=== PATIENT | male | born 1940 | race Caucasian/White ===

== ENCOUNTER → 2018-03-11 16:51 | Outpatient (CLI) | payer MEDICARE, OTHER, SELFPAY | PROVIDERS: PCP Internal Medicine; Visit Provider Urology | DX: C61 Malignant neoplasm of prostate (principal) | CPT/HCPCS: 36415; 84153 ==

== ENCOUNTER → 2018-07-02 14:34 | Outpatient (CLI) | payer MEDICARE, OTHER, SELFPAY ==
[2018-07-02 14:58] LABS: Add Manual Diff / Slide Review NO; Basophils Absolute Auto 0 /uL (0-100); Basophils Percent Auto 0.4 % (0-2); Eosinophils Absolute Auto 100 /uL (0-450); Eosinophils Percent Auto 0.6 % (2-4); Hematocrit 49.5 % (41-53); Hemoglobin 16.8 g/dL (13.5-17.5); Lymphocytes Absolute Auto 600 /uL (1100-4500); Lymphocytes Percent Auto 6.7 % (25-40); Mean Corpuscular Hemoglobin 30.6 PG (26-34); Mean Corpuscular Volume 89.9 fL (80-100); Monocytes Absolute Auto 600 /uL (0-900); Monocytes Percent Auto 6.6 % (3-14); Neutrophils Absolute Auto 7900 /uL (1500-7000); Neutrophils Percent Auto 85.7 % (50-75); Platelet Count 240 X10^3/uL (150-400); Red Cell Distribution Width 13.3 % (11.6-14.8); White Blood Cell Count 9.3 X10^3/uL (4.5-11.0)
[2018-07-02 15:07] LABS: Alanine Aminotransferase 36 IU/L (21-72); Albumin 4.6 g/dL (3.5-5.0); Albumin Globulin Ratio 1.8 (1.0-2.8); Alkaline Phosphatase 76 U/L (38-126); Aspartate Aminotransferase 22 IU/L (17-59); BUN Creatinine Ratio 22.7 (6-22); Bilirubin Total 0.7 mg/dL (0.2-1.3); Blood Urea Nitrogen 25 mg/dL (9-20); Calcium 9.6 mg/dL (8.4-10.2); Carbon Dioxide 25 mmol/L (22-32); Chloride 107 mmol/L (98-107); Estimated Glomerular Filt Rate > 60.0 mL/min (>60); Globulin 2.5 g/dL (1.7-4.1); Glucose 100 mg/dL (80-110); HEMOLYSIS < 15 (0-50); Potassium 4.6 mmol/L (3.4-5.1); Sodium 141 mmol/L (137-145); Total Protein 7.1 g/dL (6.3-8.2)
== END ==
PROVIDERS: PCP Internal Medicine; Visit Provider Internal Medicine
DX: R00.1 Bradycardia, unspecified (principal); I44.0 Atrioventricular block, first degree; K40.90 Unilateral inguinal hernia, without obstruction or gangrene, not specified as recurrent; R97.20 Elevated prostate specific antigen [PSA]
CPT/HCPCS: 36415; 80053; 84153; 85025

== ENCOUNTER 2018-07-22 07:22 | Day surgery (SDC) | payer MEDICARE, OTHER, SELFPAY ==
[2018-07-17 10:26] VITALS: BMI 27.9
[2018-07-22] VITALS (8 sets, daily range): BP systolic 132–189; BP diastolic 70–87; PULSE 46–81; RESP 13–20; TEMP 36–37; O2SAT 92–99; BMI 27.8
--- NOTE | 2018-07-22 08:27 | SUR.OPER ---
Supine on padded OR bed, head on pillow, arms secured on padded arm boards at <90 degrees abduction, legs uncrossed, safety belt at thigh, tape over blanket over lower legs.
[2018-07-22] MEDS: LACTATED RINGERS 1,000 ML 42 ML IV (08:56)
[2018-07-22] MEDS: CEFAZOLIN 2 GM/100 ML FROZ.PIGGY IV (09:00)
--- NOTE | 2018-07-22 09:12 | PM.PREOP ---
Pre-operative Note Interval Note History & Physical reviewed/Exam performed by Physician: Yes Changes to H&P: No
[2018-07-22] MEDS: LIDOCAINE 1% W/EPI INJ 20 ML INJ (09:26)
[2018-07-22] MEDS: BUPIVACAINE 0.5% (PF) VIAL 30 ML INJ (09:27)
[2018-07-22] MEDS: CEFAZOLIN 1 GM VIAL IRR (09:28)
--- NOTE | 2018-07-22 10:22 | P.OP_ITS ---
Operative Date/Time/Diagnoses Date of procedure: 07/22/18 Time of procedure: 10:21 Pre-op diagnosis: Right inguinal hernia Post-op diagnosis: same Procedure & Clinicians Procedure: Right inguinal hernia repair with mesh Same procedure as scheduled: Yes Indications: Enlarging right inguinal hernia Surgeon: Melinda Ponce Click Yes if Unassisted: Yes Anesthesia Type: General (Dr. Culp ) Operative Notes Findings: Large indirect right inguinal hernia Closure Type: primary Specimen(s): none sent Prosthetic devices, grafts, tissues, transplants, or devices: Large Pro Loop mesh implant with plug and patch Estimated Blood Loss (mL): 5 Procedure in detail: After obtaining informed consent the patient was brought to the operating room and placed in the supine position on the operating table. Following successful induction of general endotracheal anesthesia, appropriate padding of all bony prominences, and a placement of appropriate monitors, the left groin is prepped and draped in a standard surgical fashion. A timeout was held per protocol. We began the procedure by infiltrating a mixture of local anesthetics medial to the anterior superior iliac spine on the right. Following this, an incision was fashioned in the right groin superior and lateral to the left pubic tubercle. This area was infiltrated with local anesthetic to create a field block. A skin incision was created here and carried down through the skin and subcutaneous tissue to reveal Prabhu's fascia below. Prabhu's fascia was divided sharply revealing the external oblique aponeurosis below. More local anesthetic was infiltrated in the aponeurosis and it was opened in the direction of its fibers. The spermatic cord and its contents were surrounded and retracted gently using a [place] drain. The hernia sac was identified in the superior medial position and carefully dissected free from the cord structures. This was carefully placed back into the abdominal cavity without injury. A large portion of PROloop mesh was chosen for the repair. The plug was soaked in Ancef solution and deployed into the defect in the internal ring. This was sewn into place with interrupted Vicryl sutures in 2 positions. The overlying mesh layer was sewn to the pubic tubercle with an air knot of Vicryl suture. The lateral leaflets were then carefully placed around the spermatic cord and sewn together with another suture. Tags of the overlying mesh were then tucked under the external oblique aponeurosis. The wound was checked for hemostasis and irrigated with Ancef-containing solution. The edges of the external oblique aponeurosis were approximated and closed with a running Vicryl suture. The wound was irrigated once again and Prabhu's fascia was closed with a running suture. Monocryl sutures were placed in the skin. All sponge, needle, and instrument counts were correct at the conclusion of the case. The patient was allowed to awaken from anesthesia without difficulty and taken to the post anesthesia care unit in good condition. Complications: none Condition: stable Disposition: PACU Plan for aftercare: 1. Discharge to home 2. Follow up with me in my office in 2 weeks
--- NOTE | 2018-07-22 11:02 | SUR.PHASEII ---
Pt denied pain. Tolerating ice chips, declined additional po intake. Denied pain. Call light within reach.
== END 2018-07-22 11:37 | disposition home or self-care (01) ==
LOC: OR 07:24
PROVIDERS: PCP Internal Medicine; Visit Provider Surgery
PROC: (CPT 49505; principal; 2018-07-22 08:45)
DX: K40.90 Unilateral inguinal hernia, without obstruction or gangrene, not specified as recurrent (principal)
CPT/HCPCS: 49505; C1781; J0690; J1100; J1885; J2704

== ENCOUNTER → 2018-09-11 08:33 | Outpatient (CLI) | payer MEDICARE, OTHER, SELFPAY ==
[2018-09-11 11:28] LABS: Prostate Specific Antigen 3.77 ng/mL (0.10-4.00)
== END ==
PROVIDERS: PCP Internal Medicine; Visit Provider Urology
DX: C61 Malignant neoplasm of prostate (principal)
CPT/HCPCS: 36415; 84153

== ENCOUNTER → 2019-04-28 10:32 | Outpatient (CLI) | payer MEDICARE, OTHER, SELFPAY | PROVIDERS: PCP Internal Medicine; Visit Provider Urology | DX: C61 Malignant neoplasm of prostate (principal) | CPT/HCPCS: 36415; 84153 ==

== ENCOUNTER → 2019-07-05 09:15 | Outpatient (CLI) | payer MEDICARE, OTHER, SELFPAY ==
[2019-07-05 11:07] LABS: Prostate Specific Antigen 19.8 ng/mL (0.10-4.00)
== END ==
PROVIDERS: PCP Internal Medicine; Visit Provider Urology
DX: C61 Malignant neoplasm of prostate (principal)
CPT/HCPCS: 36415; 84153

== ENCOUNTER → 2019-08-26 08:54 | Outpatient (CLI) | payer MEDICARE, OTHER, SELFPAY ==
[2019-08-26 10:38] LABS: BUN Creatinine Ratio 17.1 (6-22); Blood Urea Nitrogen 18 mg/dL (9-20); Estimated Glomerular Filt Rate > 60.0 mL/min (>60)
== END ==
PROVIDERS: PCP Internal Medicine; Referring Provider Urology; Visit Provider Urology
DX: C61 Malignant neoplasm of prostate (principal)
CPT/HCPCS: 36415; 82565; 84520

== ENCOUNTER → 2019-09-02 10:19 | Outpatient (CLI) | payer MEDICARE, OTHER, SELFPAY ==
--- NOTE | 2019-09-02 | DI.NM.S_ITS ---
PROCEDURE: NM BONE SCAN WHOLE BODY RADIOPHARMACEUTICAL: 19.5 mCi Tc-99m MDP IV. INDICATIONS: Malignant neoplasm of prostate TECHNIQUE: Delayed whole-body scintigrams were obtained approximately 3-4 hours after intravenous injection of radiotracer. Anterior and posterior views were acquired from vertex to feet. Additional left and right oblique views of the pelvis were obtained. COMPARISON: [facility], CT, CT ABDOMEN PELVIS W CON, 09/02/2019, 11:10. FINDINGS: There is an isolated linear band of elevated isotope deposition within the left anterolateral fourth rib. The appearance is nonspecific but in this position with this appearance it does represent a potential area of osseous metastatic disease. IMPRESSION: Rib lesion on the left, left anterolateral fourth rib. Please correlate for whether prior trauma has occurred in this area. The prior CT scanning of the abdomen/pelvis does not include this area for CT correlation. 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 Dictated by: Edd Leon M.D. on 09/02/2019 at 16:16 Approved by: Edd Leon M.D. on 09/02/2019 at 16:18
--- NOTE | 2019-09-02 | DI.CT.S_ITS ---
PROCEDURE: CT ABDOMEN PELVIS W CON INDICATIONS: Malignant neoplasm of prostate TECHNIQUE: After the administration of oral and intravenous contrast, 5 mm thick sections acquired from the diaphragms to the symphysis. 5 mm thick coronal and sagittal reformats were performed. For radiation dose reduction, the following was used: automated exposure control, adjustment of mA and/or kV according to patient size. COMPARISON: None. FINDINGS: Image quality: Excellent. ABDOMEN: Lung bases: Lung bases are clear. Heart size is normal. Solid organs: Liver is normal in size and enhancement. Gallbladder is within normal limits. Biliary system is non-dilated. Pancreas enhances normally. Spleen is normal in size and enhancement. No adrenal nodules. Kidneys are normal in size and enhancement, without hydronephrosis. Peritoneum and bowel: Large hiatal hernia. Stomach, small bowel, and colon loops are normal in caliber and wall thickness. Diverticulosis of the descending and sigmoid colon. No free fluid or air. Nodes and vessels: No retroperitoneal or mesenteric adenopathy. Aorta and inferior vena cava are normal in caliber. Miscellaneous: There is a fat-containing 30 mm diameter paraumbilical hernia. PELVIS: Genitourinary: There is asymmetric indentation of the left posterior urinary bladder secondary to enlarged prostate, versus thickening of the left posterior inferior urinary bladder, which could be postsurgical, or neoplastic. Miscellaneous: No inguinal hernias or adenopathy. Bones: There is a moderate effusion of the pubic symphysis, measuring 23 mm anteroposterior by 25 mm craniocaudal by 27 mm transverse. There is no evidence of associated pubic symphysis erosion. No definite medication with urinary bladder is present. No suspicious bony lesions. No vertebral body compression fractures. IMPRESSION: 1. Pubic symphysis effusion, which could indicate inflammation, or infection. 2. Abnormal appearing left posterior inferior bladder. Differential considerations include postsurgical sequelae, neoplasm, versus asymmetric indentation by enlarged prostate. Cystoscopy recommended for further assessment. 3. Large hiatal hernia. Dictated by: Karan Sage M.D. on 09/02/2019 at 12:47 Approved by: Karan Sage M.D. on 09/02/2019 at 12:54
--- NOTE | 2019-09-07 09:22 | ONC.MSW ---
Description: Initial Referral Navigation T/C Reason for Referral: Prostate Cancer Activity:Called pt to confirm that we've received his referral, introduced myself as the navigator, and briefly explained the role of navigation and the ongoing availability of assistance, support, and resources. Pt was just recently dx w/prostate cancer, has started his initial treatment with Lupron. He states that he's getting a CT this morning here at , expresses no immediate needs. Forwarded to scheduling for next urgent initial appt. next week.
== END ==
PROVIDERS: PCP Internal Medicine; Referring Provider Urology; Visit Provider Urology
DX: C61 Malignant neoplasm of prostate (principal); K44.9 Diaphragmatic hernia without obstruction or gangrene; K57.30 Diverticulosis of large intestine without perforation or abscess without bleeding; K42.9 Umbilical hernia without obstruction or gangrene; M89.9 Disorder of bone, unspecified
CPT/HCPCS: 74177; 78306; A9503

== ENCOUNTER → 2019-09-07 10:23 | Outpatient (CLI) | payer MEDICARE, OTHER, SELFPAY ==
--- NOTE | 2019-09-07 | DI.CT.S_ITS ---
PROCEDURE: CT CHEST WO CON INDICATIONS: PROSTATE CANCER TECHNIQUE: Noncontrast 5 mm thick sections acquired from the pulmonary apices to the posterior costophrenic angles. 1 mm lung window, 5 mm thick coronal and sagittal and 7 mm axial MIP reformats were then acquired. For radiation dose reduction, the following was used: automated exposure control, adjustment of mA and/or kV according to patient size. COMPARISON: [place], [place], [place] BONE SCAN WHOLE BODY, 09/02/2019, 14:16. FINDINGS: Image quality: Excellent. Lungs and pleura: No acute air space opacities. No pleural effusions or pneumothorax. Central and peripheral airways are patent and normal in caliber. Mediastinum: Heart size is normal. No pericardial effusion. No mediastinal adenopathy by size criteria. Thoracic aorta and central pulmonary arteries are normal in size. Scattered atheromatous calcifications are present within the aortic arch. There is scattered atheromatous coronary artery calcifications. Esophagus is normal in caliber. There is a moderate hiatal hernia. Bones and chest wall: Questionable, subtle sclerosis is noted within the anterolateral aspect of the fourth left rib in the area of increased radiotracer uptake on the comparison bone scan dated 09/02/19 (series 3/image 110). No other suspicious bony lesions. No vertebral body compression fractures. No axillary or supraclavicular adenopathy by size criteria. Thyroid gland is unremarkable. Abdomen: Visualized upper abdominal solid organs and bowel loops appear normal in the absence of contrast. IMPRESSION: 1. Questionable subtle sclerosis within the anterolateral aspect of the left fourth rib which may correspond with the focal area of increased radiotracer uptake. Differential considerations include metastasis; however, this is a nonspecific finding which may be associated with prior trauma or bony remodeling. 2. No other findings to suggest metastasis. 3. Hiatal hernia. 4. Coronary artery and aortic atherosclerosis. Dictated by: Rakel Pedersen M.D. on 09/07/2019 at 13:29 Approved by: Rakel Pedersen M.D. on 09/07/2019 at 13:38
== END ==
PROVIDERS: PCP Internal Medicine; Referring Provider Urology; Visit Provider Urology
DX: C61 Malignant neoplasm of prostate (principal); I25.10 Atherosclerotic heart disease of native coronary artery without angina pectoris; I70.0 Atherosclerosis of aorta; K44.9 Diaphragmatic hernia without obstruction or gangrene
CPT/HCPCS: 71250

== ENCOUNTER → 2019-09-16 13:39 | Oncology outpatient (ONC) | payer MEDICARE, OTHER, SELFPAY ==
--- NOTE | 2019-09-16 14:07 | ONC.CONS ---
History of Present Illness - Data of Consult Patient: new to practice Consult date: 09/16/19 Requesting Physician: Zafar Ventura MD Primary Care Provider: Zafar Ventura MD - Consult Narrative Reason for consult: Prostate cancer Narrative: Maynor Man is a 79 year old male. Patient presented with urinary retention, and underwent TURP on 04/15/2003. The pathology showed Lamar 3+3=6/10, pT1a, 1/70 cores positive, no LVI and no PNI. On 08/11/2003, he underwent TRUS prostate Bx that showed no cancer, no high-grade PIN. Patient said since then he has never had any urinary retention problem again. The PSA level initially decreased and then has been slowly going up. His PSA level on 01/18/2009 was 0.64. On 09/11/2018, PSA was 3.77. But on 04/28/2019, PSA was 11.0. On 07/05/2019, PSA increased further to 19.8. Due to accelerated rising PSA, Dr. Cruz performed TRUS prostate biopsy on 08/16/2019. The final pathology showed Sita score 5+4=9/10, prostate adenocarcinoma in left base, no perineural invasion; Lamar score 5+4=10/10 prostate adenocarcinoma in left mid and left apex, no perineural invasion. On 09/01/2019, he was started on Lupron 7.5 mg im, and plan for 30 days of casodex. His next lupron injection was scheduled for 10/12/2019. According to patient, the plan is to proceed to radiation therapy. On 09/02/2019, patient underwent CT abdomen and pelvis that showed pubic symphysis effusion, abnormal appearing left posterior inferior bladder and large hiatal hernia. Same day bone scan showed rib lesion on the left anterior lateral fourth rib. Follow-up CT chest without contrast on 09/07/2019 showed questionable subtle sclerosis within the anterior lateral aspect of the left fourth rib. Clinically, Melchor is having on and off pubic symphysis discomfort. He said he can feel it, but not sharp. He reports no swelling, and no redness. He reports no rib pain, no back pain. He said he is very active. Yesterday he walked about a total of 4 miles without problems. He is also doing weights exercise. He has good appetite, and his weight is stable 187-190 lb. He denies any urination problem, and no blood in the urine. CC: Joshua Hunter MD Home Medications and Allergies Home Medications Medication Instructions Recorded Confirmed Type bicalutamide [Casodex] 50 mg PO DAILY 09/16/19 09/16/19 History calcium carbonate [Calcium 500] 500 mg PO DAILY 09/16/19 09/16/19 History cholecalciferol (vitamin D3) 2,000 unit DAILY 09/16/19 09/16/19 History [Vitamin D3] Allergies Allergy/AdvReac Type Severity Reaction Status Date / Time venom-honey bee Allergy Severe swelling Verified 08/04/18 09:23 [bee venom (honey bee)] of injured area Medical History - Medical, Surgical, Family History Medical History: Medical History (Last Reviewed 08/04/18 @ 09:40 by Melinda Ponce MD) Atrioventricular block, first degree Bradycardia Elevated liver function tests Enlarged prostate Fatty liver Former consumption of alcohol Former smoker GERD (gastroesophageal reflux disease) Pneumonia Prostate cancer Sinusitis Surgical History: Surgical History (Last Reviewed 08/04/18 @ 09:40 by Melinda Ponce MD) History of colonoscopy Onset Date: ~2014 History of nasal surgery History of urinary tract surgery S/P TURP (transurethral resection of prostate) Family History: Family History (Last Updated 09/16/19 @ 14:32 by Joshua Hunter MD) Mother Colon cancer Father Lung cancer - Social History Smoking Status: Former smoker Substance Use Type: does not use Alcohol Intake: current (once a while, wine or beer.) Review of Systems All systems PM: reviewed and no additional remarkable complaints except as stated (Those mentioned in HPI and SR above.) Exam Vital signs: 09/16/19 14:31 Last Vital Signs Temp 98.3 F 09/16/19 14:12 Pulse 55 L 09/16/19 14:12 Resp 18 09/16/19 14:12 BP 148/80 H 09/16/19 14:12 Pulse Ox 97 09/16/19 14:12 Narrative: ECOG 1 Vitals above reviewed Constitutional: WDWN, well nourished, and well groomed. NAD. Pleasant and cooperative. HEENT: NCAT, EOMI, PERRLA, anicteric sclera. Oral mucosa clean, no erythema, no ulcers noted on the oral mucosa, no enlargement of tonsils, and no pharynx secretions noted. Neck: Supple and symmetrical. No palpable thyromegaly or lymphadenopathy. No palpable masses. Respiratory: No use of accessory muscles, CTAB, no wheezes. Cardiovascular: RRR, S1 and S2 normal, no M/G/R. No edema of lower extremities. Abdomen: Soft, NTND, no palpable hepatosplenomegaly, no hernia. Lymphatic: no palpable palpable lymph nodes in the neck, axillae, or groins. Musculoskeletal: normal gait and station Skin: no rashes, lesions, or ulcers, no induration, or sub cutaneous nodules. Neurological: AOx3, CN II-XII grossly intact. No focal motor or sensory deficit. Psychiatric: Normal judgment and insight, AOx3, normal memory (recent and remote), normal mood and affect. Results - Labs Reviewed. See HPI. - Imaging CT scan - abdomen: report reviewed CT scan - chest: report reviewed CT scan - pelvis: report reviewed (Bone scan was reviewed) Additional studies: Procedures Endoscopic polypectomy of large intestine (09/16/14) Assessment and Plan (1) Prostate cancer Overview: 79-year-old gentleman with GS 3+3 prostate cancer diagnosed after TURP in March 2003 for urinary retention. Follow-up TR you as in July 2003 reviewed no cancer. Patient has been on observation since. His PSA level initially decreased slightly and nadired to 1.29 in November 2016. But it has increased slowly since. Recently in April 2019, PSA showed an accelerated climb with PSA as high as 19.8 in June 2019. Repeat TRUS on 08/16/2019 showed Lamar score 5+5 prostate adenocarcinoma. Patient was started on androgen deprivation therapy on 09/01/2019 with Lupron. Casodex x1 month was used to prevent flare. Assessment: I explained to the patient that he has a most likely locally advanced prostate adenocarcinoma with high Sita score. The left anterior rib lesion is suspicious for metastasis but not confirmed yet. He also denies any symptoms related to the anterior rib. I talked with him that I would recommend continue androgen deprivation therapy and monitor PSA level closely. Plan: Follow with Dr. Cruz for Lupron 22.5 mg q3m as planned. RTC in 3 months, CBC, CMP, PSA, T
[2019-09-16 14:12] VITALS: BP 148/80; PULSE 55; RESP 18; TEMP 36.8; O2SAT 97
--- NOTE | 2019-12-15 11:57 | ONC.SCHED ---
patient being seen at [facility] now, if he wants to get back on Dr. Hunter's schedule, he will call (cancelled 12/16/19 appt)
== END ==
PROVIDERS: PCP Internal Medicine; Referring Provider Urology; Visit Provider Internal Medicine Hematology & Oncology
DX: C61 Malignant neoplasm of prostate (principal); M89.9 Disorder of bone, unspecified; K76.0 Fatty (change of) liver, not elsewhere classified; K21.9 Gastro-esophageal reflux disease without esophagitis; Z87.891 Personal history of nicotine dependence
CPT/HCPCS: 99204; 99214

== ENCOUNTER → 2021-07-26 08:09 | Outpatient (CLI) | payer MEDICARE, OTHER, SELFPAY ==
[2021-07-26 11:27] LABS: Prostate Specific Antigen 0.586 ng/mL (0.10-4.00)
== END ==
PROVIDERS: PCP Internal Medicine; Referring Provider Physician Assistant; Visit Provider Physician Assistant
DX: C61 Malignant neoplasm of prostate (principal)
CPT/HCPCS: 36415; 84153

== ENCOUNTER → 2022-02-05 09:12 | Outpatient (CLI) | payer MEDICARE, OTHER, SELFPAY ==
[2022-02-05 15:06] LABS: Alanine Aminotransferase 20 IU/L (<50); Albumin 4.1 g/dL (3.5-5.0); Alkaline Phosphatase 67 U/L (38-126); Aspartate Aminotransferase 24 IU/L (17-59); BUN Creatinine Ratio 17.1 (6-22); Bilirubin Total 0.6 mg/dL (0.2-1.3); Blood Urea Nitrogen 18 mg/dL (9-20); Calcium 9.3 mg/dL (8.4-10.2); Carbon Dioxide 27 mmol/L (22-32); Chloride 103 mmol/L (98-107); Estimated Glomerular Filt Rate > 60 mL/min (>60); Globulin 2.1 g/dL (1.7-4.1); Glucose 95 mg/dL (80-110); HEMOLYSIS < 15 (0-50); Potassium 4.7 mmol/L (3.4-5.1); Sodium 138 mmol/L (137-145); Total Protein 6.2 g/dL (6.3-8.2)
== END ==
PROVIDERS: PCP Internal Medicine; Referring Provider Internal Medicine Medical Oncology; Visit Provider Internal Medicine Medical Oncology
DX: C61 Malignant neoplasm of prostate (principal)
CPT/HCPCS: 36415; 80053

== ENCOUNTER 2022-09-20 19:53 | Observation (INO) | payer MEDICARE, OTHER, SELFPAY ==
[2022-09-20] VITALS (19 sets, daily range): BP systolic 102–198; BP diastolic 53–95; PULSE 54–80; RESP 15–30; O2SAT 95–98
--- NOTE | 2022-09-20 19:54 | DI.CT.S_ITS ---
PROCEDURE: CT STROKE INDICATIONS: Positive BE-FAST, Stroke symptoms, last normal 1900 today, left sx's TECHNIQUE: Noncontrast 4.5 mm thick angled axial sections acquired from the foramen magnum to the vertex, with coronal reformats. For radiation dose reduction, the following was used: automated exposure control, adjustment of mA and/or kV according to patient size. COMPARISON: None. FINDINGS: Image quality: Mild streak artifact can be seen through the skull base. CSF spaces: Basal cisterns are patent. No extra-axial fluid collections. The ventricles are symmetric in size and shape. Brain: No intracranial bleeds or masses. There is cerebral volume loss for age, with resultant ventricular and sulcal prominence. There are periventricular and deep white matter chronic small vessel ischemic changes. There is intracranial internal carotid artery atherosclerosis. Skull and face: Calvarium and visualized facial bones appear intact, without suspicious lesions. Sinuses: Visualized sinuses and mastoids are clear. IMPRESSION: No acute intracranial hemorrhage is seen. No acute intracranial process is seen. Note: Case discussed by telephone with Dr. Bacon at 7:10 p.m. [place] time on September 20, 2022. This study fulfills neurological imaging criteria for inclusion or exclusion of acute stroke therapies based on available published neurological guidelines. Dictated by: Liam Domingo M.D. on 09/20/2022 at 19:09 Approved by: Liam Domingo M.D. on 09/20/2022 at 19:12
--- NOTE | 2022-09-20 19:54 | DI.RAD.S_ITS ---
PROCEDURE: XR CHEST 1V INDICATIONS: Possible stroke TECHNIQUE: One view of the chest was acquired. COMPARISON: [facility], CT, CT STROKE, 09/20/2022, 19:51. [facility], CR, CHEST 2 VIEW, 01/25/2015, 15:06. FINDINGS: Surgical changes and devices: None. Lungs and pleura: An incomplete inspiratory result is noted, causing a crowded appearance to the lung markings. No focal infiltrates are seen. No pneumothorax or significant pleural effusions are seen. Mediastinum: Mediastinal contours appear normal. Heart size is normal. Bones and chest wall: No suspicious bony lesions. Age-appropriate bony degenerative changes are seen. Overlying soft tissues appear unremarkable. IMPRESSION: Limited portable chest examination, without a significant cardiopulmonary abnormality identified. Dictated by: Liam Domingo M.D. on 09/20/2022 at 19:12 Approved by: Liam Domingo M.D. on 09/20/2022 at 19:13
--- NOTE | 2022-09-20 19:54 | DI.CT.S_ITS ---
PROCEDURE: CT ANGIO HEAD AND NECK INDICATIONS: stroke, lkw 1900 TECHNIQUE: Noncontrast images were performed earlier in the day and not repeated. After the administration of intravenous contrast, 1 mm thick sections acquired from the aortic arch through the [place] of [place]. Post-contrast 4.5 mm thick sections then re-acquired from the foramen magnum to the vertex. 3-dimensional qdgounc-zfphgltte-jawcxrmaua (MIP) and/or volume rendering reformats were acquired of the central intracranial vasculature and neck separately. For radiation dose reduction, the following was used: automated exposure control, adjustment of mA and/or kV according to patient size. COMPARISON: [facility], CR, XR CHEST 1V, 09/20/2022, 19:53. FINDINGS: Image quality: This examination is limited by involuntary motion artifact. BRAIN: CSF spaces: Ventricles are normal in size and shape. Basal cisterns are patent. No extra-axial fluid collections. Brain: No midline shift. No intracranial bleeds or masses. Judge-white matter interface appears intact. Skull and face: Calvarium and facial bones appear intact, without suspicious lesions. Orbits appear normal. Sinuses: Sinuses and mastoids are clear. HEAD CT ANGIOGRAPHY: Anterior circulation: Intracranial internal carotid arteries demonstrate generalized atherosclerotic irregularity and calcification, with 30-40% narrowing seen on each side.. The flow within the paired anterior cerebral arteries is normal and symmetric. The flow within the middle cerebral arteries is normal and symmetric. The anterior communicating artery is seen. No aneurysms are seen. Posterior circulation: Visualized portions of the vertebral arteries demonstrate normal caliber, and join to form a normal appearing basilar artery. Flow within the posterior cerebral arteries is normal and symmetric. No aneurysms are seen. NECK CT ANGIOGRAPHY: Carotid system: The great vessels demonstrate a conventional anatomy as they arise from the aortic arch. The origins of the common carotid arteries appear patent. The common carotid arteries demonstrate normal caliber and courses. The bifurcation regions demonstrate atherosclerotic irregularity and calcification, with 70-80% narrowing involving the left proximal internal carotid artery, as on series 7, image 80 and on series 9, image 46. No hemodynamically significant stenosis can be seen involving the left proximal internal carotid artery. The more distal internal carotid arteries demonstrate normal course and caliber. Posterior circulation: Focal calcification can be seen involving the origin left vertebral artery, with approximately 50% narrowing. No significant narrowing can be seen involving the origin of the right vertebral artery. The more distal extracranial vertebral arteries are within normal limits. Soft tissues: Visualized neck soft tissues demonstrate no suspicious abnormalities. Bones: No suspicious bony lesions. Visualized cervical spine appears normally aligned. Moderate cervical spine degenerative change can be seen. IMPRESSION: No significant intracranial arterial abnormality is seen. There is 70-80% narrowing seen involving the origin of the left internal carotid artery. 50% narrowing involving the origin of the left vertebral artery. Any quantitative measurements of stenosis were performed using NASCET criteria. Dictated by: Liam Domingo M.D. on 09/20/2022 at 19:21 Approved by: Liam Domingo M.D. on 09/20/2022 at 19:25
--- NOTE | 2022-09-20 19:58 | ED_ITS ---
HPI - General Adult General Chief complaint: Neuro Symptoms/Deficit Stated complaint: CODE STROKE Time Seen by Provider: 09/20/22 19:57 History of Present Illness HPI narrative: 82-year-old male former smoker with history of prostate cancer presents by EMS for evaluation of stroke-like symptoms. He left the house at 1800 and returned at 7:00 p.m. and it was noted that he had some difficulty with ambulation and was slurring his words. EMS was activated and they found him to have slurring of speech, left-sided facial droop left arm was drooping and hit the bed and he had ataxia. He is brought in as a code stroke and symptoms are significantly improved though still slightly present on arrival. Patient activated as a code stroke and taken directly to CT Related Data Home Medications Medication Instructions Recorded Confirmed bicalutamide 50 mg tablet (Casodex) 50 mg PO DAILY 09/16/19 09/16/19 calcium carbonate 500 mg calcium 500 mg PO DAILY 09/16/19 09/16/19 (1,250 mg) tablet (Calcium 500) cholecalciferol (vitamin D3) 50 2,000 unit DAILY 09/16/19 09/16/19 mcg (2,000 unit) tablet (Vitamin D3) Allergies Allergy/AdvReac Type Severity Reaction Status Date / Time venom-honey bee Allergy Severe swelling Verified 08/04/18 09:23 [bee venom (honey bee)] of injured area Review of Systems Review of Systems Narrative: GENERAL: Denies chills, fatigue, malaise, fever, sweats. HEENT: Denies sinus pain, ear pain, sore throat, difficulty swallowing, dizzin ess. RESPIRATORY: Denies dyspnea, cough, wheezing, hemoptysis, sputum. CARDIOVASCULAR: Denies chest pain, palpitations, orthopnea, edema, GASTROINTESTINAL: Denies nausea, vomiting, abdominal pain, diarrhea, constipation, melena. : Denies dysuria, frequency, incontinence, hematuria, urinary retention. MUSCULOSKELETAL: denies weakness, joint pain, or bony pain SKIN: Denies rash, skin lesions, or other NEUROLOGIC: See HPI PSYCHIATRIC: No concerning psychosocial issues. 12 point review of systems is negative except for those stated above Patient History Medical History (Updated 09/20/22 @ 22:32 by Daryl Bacon DO) Atrioventricular block, first degree Bradycardia Elevated liver function tests Enlarged prostate Fatty liver Former consumption of alcohol Former smoker GERD (gastroesophageal reflux disease) Pneumonia Prostate cancer Sinusitis Surgical History History of colonoscopy (~2014) History of nasal surgery History of urinary tract surgery S/P TURP (transurethral resection of prostate) Family History Mother Colon cancer Father Lung cancer Social History household members: none occupational status: previously employed Smoking Status: Former smoker alcohol intake: current (once a while, wine or beer.) substance use type: does not use Smoking Status: Former smoker Substance Use Type: does not use Exam Narrative Exam Narrative: GENERAL: [82] year old patient appears stated age. Well-developed patient, in mild distress. HEAD: Atraumatic. Normocephalic. EYES: Pupils equal round and reactive. Extraocular motions intact. No scleral icterus. No injection or drainage. ENT: Nose without bleeding, purulent drainage. Throat without erythema, tonsillar hypertrophy or exudate. Airway patent. NECK: Trachea midline. Non tender CARDIOVASCULAR: Regular rate and rhythm without murmurs, gallops, or rubs. RESPIRATORY: Clear to auscultation. Breath sounds equal bilaterally. No wheezes, rales, or rhonchi. GASTROINTESTINAL: Abdomen soft, non-tender, nondistended. EXTREMITIES: No edema or joint tenderness. BACK: Nontender without deformity or crepitance. No flank tenderness. NEURO: AOx3. SKIN: No rash or erythema of visible areas Initial Vital Signs Initial Vital Signs: Vital Signs Pulse Rate 80 09/20/22 20:08 Pulse Oximetry 96 09/20/22 20:08 Course Orders Ordered: ED Orders 09/20/22 19:15 Ethanol (ETOH) Stat 09/20/22 19:50 Complete Blood Count AUTO DIFF Stat Comprehensive Metabolic Panel Stat Magnesium Stat PTT Partial Thromboplastin Khoa Stat Prothrombin Time INR Stat Troponin & CK Cardiac Panel Stat 09/20/22 19:[address] angio head and neck Stat XR chest 1V Stat Urine Drug Screen, Rapid Stat EKG-12 Lead Stat 09/20/22 20:13 COVID19 -Nasal RAPID Stat Ondansetron HCl (Ondansetron 4 Mg Odt) 4 mg SL NOW PRN PRN Reason: Nausea And Vomiting Ondansetron HCl (Ondansetron 4 Mg/2 Ml Inj) 4 mg IV NOW PRN PRN Reason: Nausea And Vomiting Discontinued Medications Aspirin (Aspirin 81 Mg Chew Tab) 324 mg PO NOW ONE Stop: 09/20/22 20:52 Last Admin: 09/20/22 21:02 Dose: 324 mg Documented By: CIARA Vital Signs Vital signs: Vital Signs - 8 hr 09/20/22 20:08 09/20/22 20:09 09/20/22 20:09 Pulse Rate 80 73 Respiratory Rate 21 Blood Pressure 198/95 H Pulse Oximetry 96 95 09/20/22 20:16 09/20/22 20:16 09/20/22 20:30 Pulse Rate 77 74 Respiratory Rate 18 19 Blood Pressure 186/86 H Pulse Oximetry 96 98 09/20/22 20:31 09/20/22 20:31 09/20/22 20:45 Pulse Rate 79 74 Respiratory Rate 28 H 23 Blood Pressure 132/71 Pulse Oximetry 97 95 09/20/22 20:45 09/20/22 21:03 09/20/22 21:15 Pulse Rate 80 80 Respiratory Rate 26 H Blood Pressure 168/88 H Pulse Oximetry 96 96 09/20/22 21:15 09/20/22 21:30 09/20/22 21:30 Pulse Rate 76 Respiratory Rate 25 H Blood Pressure 138/80 123/66 Pulse Oximetry 97 Medical Decision Making Lab Data 09/20/22 19:50 09/20/22 19:50 Labs: Lab Results 09/20/22 09/20/22 09/20/22 Range/Units 19:15 19:50 19:50 WBC 5.1 (4.5-11.0) X10^3/uL RBC 4.13 L (4.5-5.9) X10^6/uL Hgb 12.6 L (13.5-17.5) g/dL Hct 36.7 L (41-53) % MCV 88.9 (80-100) fL MCH 30.5 (26-34) PG MCHC 34.3 (30-36) % RDW 12.9 (11.6-14.8) % Plt Count 183 (150-400) X10^3/uL Neut % (Auto) 72.5 (50-75) % Lymph % (Auto) 17.6 L (25-40) % [place] % (Auto) 6.7 (3-14) % Eos % (Auto) 2.9 (2-4) % Baso % (Auto) 0.3 (0-2) % Neut # (Auto) 3700 (1644-4733) /uL Lymph # (Auto) 900 L (0318-7256) /uL [place] # (Auto) 300 (0-900) /uL Eos # (Auto) 100 (0-450) /uL Baso # (Auto) 0 (0-100) /uL PT 11.4 (10.1-12.7) SECONDS INR 1.0 (0.9-1.3) APTT 30 (26-36) SECONDS Sodium (137-145) mmol/L Potassium (3.4-5.1) mmol/L Chloride (98-107) mmol/L Carbon Dioxide (22-32) mmol/L BUN (9-20) mg/dL Creatinine (0.66-1.25) mg/dL Estimated GFR (>60) mL/min BUN/Creatinine Ratio (6-22) Glucose (80-110) mg/dL Calcium (8.4-10.2) mg/dL Magnesium (1.6-2.3) mg/dL Total Bilirubin (0.2-1.3) mg/dL AST (17-59) IU/L ALT (<50) IU/L Alkaline Phosphatase (38-126) U/L Total Creatine Kinase (55-170) U/L CK-MB (CK-2) (<2.37) ng/mL CK-MB (CK-2) Rel Index (1.5-5.0) % Troponin I (0.01-0.034) ng/mL Total Protein (6.3-8.2) g/dL Albumin (3.5-5.0) g/dL Globulin (1.7-4.1) g/dL Albumin/Globulin Ratio (1.0-2.8) Ethyl Alcohol 225 H ( - 10) mg/dL SARS-CoV-2 (PCR) (Negative) 09/20/22 09/20/22 Range/Units 19:50 20:13 WBC (4.5-11.0) X10^3/uL RBC (4.5-5.9) X10^6/uL Hgb (13.5-17.5) g/dL Hct (41-53) % MCV (80-100) fL MCH (26-34) PG MCHC (30-36) % RDW (11.6-14.8) % Plt Count (150-400) X10^3/uL Neut % (Auto) (50-75) % Lymph % (Auto) (25-40) % [place] % (Auto) (3-14) % Eos % (Auto) (2-4) % Baso % (Auto) (0-2) % Neut # (Auto) (6293-6266) /uL Lymph # (Auto) (5623-7485) /uL [place] # (Auto) (0-900) /uL Eos # (Auto) (0-450) /uL Baso # (Auto) (0-100) /uL PT (10.1-12.7) SECONDS INR (0.9-1.3) APTT (26-36) SECONDS Sodium 139 (137-145) mmol/L Potassium 4.1 (3.4-5.1) mmol/L Chloride 105 (98-107) mmol/L Carbon Dioxide 23 (22-32) mmol/L BUN 22 H (9-20) mg/dL Creatinine 1.05 (0.66-1.25) mg/dL Estimated GFR > 60 (>60) mL/min BUN/Creatinine Ratio 21.0 (6-22) Glucose 111 H (80-110) mg/dL Calcium 9.2 (8.4-10.2) mg/dL Magnesium 2.2 (1.6-2.3) mg/dL Total Bilirubin 1.3 (0.2-1.3) mg/dL AST 29 (17-59) IU/L ALT 25 (<50) IU/L Alkaline Phosphatase 79 (38-126) U/L Total Creatine Kinase 215 H (55-170) U/L CK-MB (CK-2) 5.82 H (<2.37) ng/mL CK-MB (CK-2) Rel Index 2.7 (1.5-5.0) % Troponin I < 0.012 (0.01-0.034) ng/mL Total Protein 6.9 (6.3-8.2) g/dL Albumin 4.5 (3.5-5.0) g/dL Globulin 2.4 (1.7-4.1) g/dL Albumin/Globulin Ratio 1.9 (1.0-2.8) Ethyl Alcohol ( - 10) mg/dL SARS-CoV-2 (PCR) Negative (Negative) MDM Narrative Medical decision making narrative: [82] year old patient presents with stroke-like symptoms with last known normal at 18 20 largely improved by arrival, completely resolved at 8:50 p.m. my 1st exam he still was slurring words and left arm drifted but did not hit bed Multiple etiologies for patient's symptoms considered including, but not limited to: [Stroke, TIA versus other] Prior Charts reviewed in our EMR Primary Historian: patient and Labs reviewed and interpreted by myself: No significant abnormalities requiring intervention. Alcohol level noted to be elevated which certainly could explain slurring of words and ataxia but does not explain left upper extremity weakness Imaging reviewed: CT head - no bleed. CTA - no LVO, dissection #187: Stroke & Stroke Rehabilitation: Thrombolytic Therapy TPA not given as his symptoms completely resolved. Consultations - hospitalist happy to accept Patient is a TIA, thankfully with complete resolution of symptoms and no ongoing indication for tPA but would require hospitalization for further evaluation including echo, MRI and appropriate home medications Discharge Plan Departure Patient Disposition: Admitted as Observation Clinical Impression: Transient cerebral ischemia Admit Date/Time: 09/20/22 21:38 Admit Provider: Chioma Joy
[2022-09-20 20:05] LABS: Add Manual Diff / Slide Review NO; Basophils Absolute Auto 0 /uL (0-100); Basophils Percent Auto 0.3 % (0-2); Eosinophils Absolute Auto 100 /uL (0-450); Eosinophils Percent Auto 2.9 % (2-4); Hematocrit 36.7 % (41-53); Hemoglobin 12.6 g/dL (13.5-17.5); Lymphocytes Absolute Auto 900 /uL (1100-4500); Lymphocytes Percent Auto 17.6 % (25-40); Mean Corpuscular HGB Conc 34.3 % (30-36); Mean Corpuscular Hemoglobin 30.5 PG (26-34); Mean Corpuscular Volume 88.9 fL (80-100); Monocytes Absolute Auto 300 /uL (0-900); Monocytes Percent Auto 6.7 % (3-14); Neutrophils Absolute Auto 3700 /uL (1500-7000); Neutrophils Percent Auto 72.5 % (50-75); Platelet Count 183 X10^3/uL (150-400); Red Blood Cell Count 4.13 X10^6/uL (4.5-5.9); Red Cell Distribution Width 12.9 % (11.6-14.8); White Blood Cell Count 5.1 X10^3/uL (4.5-11.0)
[2022-09-20 20:16] LABS: Prothrombin Time 11.4 SECONDS (10.1-12.7)
[2022-09-20 20:18] LABS: PTT Partial Thromboplastin Tim 30 SECONDS (26-36)
[2022-09-20 20:20] LABS: Alanine Aminotransferase 25 IU/L (<50); Albumin 4.5 g/dL (3.5-5.0); Albumin Globulin Ratio 1.9 (1.0-2.8); Alkaline Phosphatase 79 U/L (38-126); Aspartate Aminotransferase 29 IU/L (17-59); Bilirubin Total 1.3 mg/dL (0.2-1.3); Blood Urea Nitrogen 22 mg/dL (9-20); Calcium 9.2 mg/dL (8.4-10.2); Carbon Dioxide 23 mmol/L (22-32); Chloride 105 mmol/L (98-107); Creatine Kinase 215 U/L (55-170); Estimated Glomerular Filt Rate > 60 mL/min (>60); Globulin 2.4 g/dL (1.7-4.1); Glucose 111 mg/dL (80-110); HEMOLYSIS < 15 (0-50); Magnesium 2.2 mg/dL (1.6-2.3); Potassium 4.1 mmol/L (3.4-5.1); Sodium 139 mmol/L (137-145); Total Protein 6.9 g/dL (6.3-8.2)
[2022-09-20 20:32] LABS: Troponin I < 0.012 ng/mL (0.01-0.034)
[2022-09-20 20:35] LABS: CKMB % Relative Index 2.7 % (1.5-5.0); Creatine Kinase MB 5.82 ng/mL (<2.37)
[2022-09-20 20:54] LABS: COVID19 -Nasal RAPID Negative (Negative)
[2022-09-20 20:58] LABS: Ethanol (ETOH) 225 mg/dL
[2022-09-20] MEDS: ASPIRIN 81 MG CHEW TAB 324 MG PO (21:02)
--- NOTE | 2022-09-20 23:01 | DI.MRI.S_ITS ---
PROCEDURE: MR HEAD/BRAIN WO CON INDICATIONS: TIA TECHNIQUE: Non-contrast axial T1 spin echo, axial T2 fast spin echo, sagittal and axial FLAIR, coronal T2 fast spin echo, axial gradient echo, axial diffusion and ADC through the brain. COMPARISON: [facility], CT, CT ANGIO HEAD AND NECK, 09/20/2022, 19:51. FINDINGS: Image quality: Excellent. CSF spaces: Ventricles appear symmetric in size and shape. Basal cisterns are patent. No extra-axial fluid collections. Brain: No intracranial bleeds or mass effects. There is cerebral volume loss for age. There are minimal periventricular and deep white matter chronic small vessel ischemic changes. Brainstem appears normal. Diffusion-weighted images show no acute ischemic insults. No chronic ischemic insults. Normal intravascular flow voids are present. Skull and face: Calvarial bone marrow is normal in signal. Orbits are normal. Sinuses: Sinuses and mastoids are clear. IMPRESSION: Negative brain MRI for patient age. No evidence acute intracranial process. Dictated by: Rodney Foster M.D. on 09/21/2022 at 8:17 Approved by: Rodney Foster M.D. on 09/21/2022 at 8:18
--- NOTE | 2022-09-20 23:12 | PM.HP.1 ---
History of Present Illness History of Present Illness Date Patient Seen: 09/20/22 Time Patient Seen: 23:12 Chief complaint: CODE STROKE Narrative: Maynor Man is an 82-year-old male with a history of prostate cancer, former smoker, alcohol abuse who presented to the ED for evaluation of stroke-like symptoms.? Last known well 1819, EMS was activated and they found him to have slurring of speech, left-sided facial droop left arm was drooping and hit the bed and ataxia.? He is brought in as a code stroke and symptoms are significantly improved though still slightly present on arrival, after imaging symptoms completely resolved. Patient did demonstrate hypertensive urgency without the diagnosis of hypertension in the ED 198/95, 186/86, and slightly tachypneic respiratory rates 25-27. On admit patient denies chest pain, shortness in breath, headache, changes in vision, difficulty swallowing, speech impairment, weakness, numbness, tingling, difficulty with ambulation, recent falls, head injury, LOC, fever, body aches, chills, cough, recent exposure to illness, abdominal pain, nausea, vomiting, urinary incontinence/retention, dysuria, frequency, urgency, hematuria, bowel changes, constipation, incontinence, melena, rashes, recent changes to medication, illness, injury, or trauma. Patient reports that he does not drink regularly and had 1 shot glass of alcohol this evening. At the time of admit patient is asymptomatic, and hemodynamically stable BP 128/56, HR 53, RR 20, O2 saturation 96% on room air. H&H 12.6/36.7, BUN 22, TCK 21.5, CK-2:5.82, RI 2.7, initial troponins negative, COVID negative, ETOH 225. CTA H/N 70-80% narrowing of left ICA, 50% narrowing of left VA, chest x-ray portable limited no acute cardiopulmonary processes appreciated, head CT negative for any acute intracranial process. Patient admitted for TIA hypertensive urgency without the diagnosis of hypertension and alcohol intoxication. ? [facility] Medical History Atrioventricular block, first degree Bradycardia Elevated liver function tests Enlarged prostate Fatty liver Former consumption of alcohol Former smoker GERD (gastroesophageal reflux disease) Pneumonia Prostate cancer Sinusitis Surgical History History of colonoscopy (~2014) History of nasal surgery History of urinary tract surgery S/P TURP (transurethral resection of prostate) Family History Mother Colon cancer Father Lung cancer Social History household members: none occupational status: previously employed Smoking Status: Former smoker alcohol intake: current (once a while, wine or beer.) substance use type: does not use Meds Home Medications and Allergies Home Medications Medication Instructions Recorded Confirmed Type bicalutamide 50 mg tablet (Casodex) 50 mg PO DAILY 09/16/19 09/16/19 History calcium carbonate 500 mg calcium 500 mg PO DAILY 09/16/19 09/16/19 History (1,250 mg) tablet (Calcium 500) cholecalciferol (vitamin D3) 50 2,000 unit DAILY 09/16/19 09/16/19 History mcg (2,000 unit) tablet (Vitamin D3) Allergies Allergy/AdvReac Type Severity Reaction Status Date / Time venom-honey bee Allergy Severe swelling Verified 08/04/18 09:23 [bee venom (honey bee)] of injured area Review of Systems Review of Systems Narrative: All 12 point systems reviewed with the patient and are negative except otherwise documented. Exam Vital Signs (past 8 hours): - 09/20/22 20:08 09/20/22 20:09 09/20/22 20:09 Pulse Rate 80 73 Respiratory Rate 21 Blood Pressure 198/95 H Pulse Oximetry 96 95 09/20/22 20:16 09/20/22 20:16 09/20/22 20:30 Pulse Rate 77 74 Respiratory Rate 18 19 Blood Pressure 186/86 H Pulse Oximetry 96 98 09/20/22 20:31 09/20/22 20:31 09/20/22 20:45 Pulse Rate 79 74 Respiratory Rate 28 H 23 Blood Pressure 132/71 Pulse Oximetry 97 95 09/20/22 20:45 09/20/22 21:03 09/20/22 21:15 Pulse Rate 80 80 Respiratory Rate 26 H Blood Pressure 168/88 H Pulse Oximetry 96 96 09/20/22 21:15 09/20/22 21:30 09/20/22 21:30 Pulse Rate 76 Respiratory Rate 25 H Blood Pressure 138/80 123/66 Pulse Oximetry 97 09/20/22 21:46 09/20/22 21:46 09/20/22 22:00 Pulse Rate 60 54 L Respiratory Rate 30 H 30 H Blood Pressure 102/53 L Pulse Oximetry 96 96 09/20/22 22:01 09/20/22 22:01 Pulse Rate 55 L Respiratory Rate 25 H Blood Pressure 128/56 L Pulse Oximetry 96 Narrative Exam Narrative: General: Patient is a well-developed, well-nourished in no distress at this time. HEENT: Normocephalic, atraumatic, extraocular muscles intact, oral pharynx is clear and mucous membranes are moist. Neck is supple and symmetric, trachea is midline, no adenopathy, no thyroid enlargement, nontender, no masses palpated. Negative for JVD Chest: Normal AP diameter and contour without kyphoscoliosis, no nasal flaring, retractions, or tachypneic labored Lungs: Auscultation of all lung perez are clear without adventitious sounds, wheezes, rhonchi, or rales. Cardio: S1 & S2 with regular rate and rhythm without murmur, rubs, or gallops, no carotid bruit, no cardiac pulsations present. Abdomen: Soft nontender, negative for organomegaly, or masses. Bowel sounds are present in all 4 quadrants without guarding or rebound, no CVA tenderness. Musculoskeletal: Muscle strength and tone are equal within normal limits, no deformity, crepitus, effusions, cyanosis, clubbing or edema present. Full range of motion intact radial and pedal pulses are normal. Skin: Warm dry and intact without rashes, ulcerations or petechiae. Neuro: Alert and orientated x3, strength is +5/5 in all extremities, sensation to touch intact, no gross deficits noted of cranial nerves.NIH:0 Psych: Patient has a well-kept appearance, appropriate affect, mental status attitude thought context and judgment are appropriate for age. Objective Labs 09/20/22 19:50 09/20/22 19:50 Labs: Laboratory Results - last 24 hr 09/20/22 09/20/22 09/20/22 19:15 19:50 19:50 WBC 5.1 RBC 4.13 L Hgb 12.6 L Hct 36.7 L MCV 88.9 MCH 30.5 MCHC 34.3 RDW 12.9 Plt Count 183 Neut % (Auto) 72.5 Lymph % (Auto) 17.6 L [place] % (Auto) 6.7 Eos % (Auto) 2.9 Baso % (Auto) 0.3 Neut # (Auto) 3700 Lymph # (Auto) 900 L [place] # (Auto) 300 Eos # (Auto) 100 Baso # (Auto) 0 PT 11.4 INR 1.0 APTT 30 Sodium Potassium Chloride Carbon Dioxide BUN Creatinine Estimated GFR BUN/Creatinine Ratio Glucose Calcium Magnesium Total Bilirubin AST ALT Alkaline Phosphatase Total Creatine Kinase CK-MB (CK-2) CK-MB (CK-2) Rel Index Troponin I Total Protein Albumin Globulin Albumin/Globulin Ratio Ethyl Alcohol 225 H SARS-CoV-2 (PCR) 09/20/22 09/20/22 19:50 20:13 WBC RBC Hgb Hct MCV MCH MCHC RDW Plt Count Neut % (Auto) Lymph % (Auto) [place] % (Auto) Eos % (Auto) Baso % (Auto) Neut # (Auto) Lymph # (Auto) [place] # (Auto) Eos # (Auto) Baso # (Auto) PT INR APTT Sodium 139 Potassium 4.1 Chloride 105 Carbon Dioxide 23 BUN 22 H Creatinine 1.05 Estimated GFR > 60 BUN/Creatinine Ratio 21.0 Glucose 111 H Calcium 9.2 Magnesium 2.2 Total Bilirubin 1.3 AST 29 ALT 25 Alkaline Phosphatase 79 Total Creatine Kinase 215 H CK-MB (CK-2) 5.82 H CK-MB (CK-2) Rel Index 2.7 Troponin I < 0.012 Total Protein 6.9 Albumin 4.5 Globulin 2.4 Albumin/Globulin Ratio 1.9 Ethyl Alcohol SARS-CoV-2 (PCR) Negative Assessment & Plan Assessment & Plan narrative: Maynor Man is an 82-year-old male with a history of prostate cancer, former smoker, alcohol abuse who presented to the ED for evaluation of stroke-like symptoms.? Last known well 1819, EMS was activated and they found him to have slurring of speech, left-sided facial droop left arm was drooping and hit the bed and ataxia. Patient admitted for TIA hypertensive urgency without the diagnosis of hypertension and alcohol intoxication. 1. TIA (confusion, left arm weakness, left facial droop, ataxia, dysarthria) acute, present on admission -last known well 1819-resolved at 8:50 p.m. NIH:0 on admit -Plavix, ASA, Lipitor -ordered lipid panel, A1c -MR in echo tomorrow -bedside swallow completed -PT OT speech evaluation -CTA H/N 70-80% narrowing of left ICA, 50% narrowing of left VA. -head CT negative for any acute intracranial process. 2. Hypertensive urgency without the diagnosis of hypertension, acute, present on admission -ED: 198/95, 186/86-resolved on admit 128/56 -CK-2:5.82, RI 2.7, initial troponins negative 3. History of alcohol abuse, acute intoxication, present on admission -ETOH 225 -patient admitted under [facility] protocol -seizure precaution, thiamine, vitamin-A, folic acid -ammonia, repeat ETOH ordered -NS@100cc/hr overnight 4. Prostate cancer, chronic, present on admission -patient reports that he takes chemo medication 2 tabs twice daily was unable to clarify medication or dosage -GS 3+3 prostate cancer diagnosed after TURP in March 2003 for urinary retention. -Repeat TRUS on 08/16/2019 showed Roland score 5+5 prostate adenocarcinoma -communication for nurse to verify in am Code status:DNR-per patient discussion Surrogate decision maker: Doug SOTELO PCR: Negative DVT/VTE prophylaxis: Lovenox and SCDs Disposition: Patient admitted for observation TIA stroke rule out expected length of stay less than 2 midnights. I have utilized all available immediate resources to obtain, update, or review the patient's current medications. I confirmed that the patient's advanced care plan is present, Code status is documented and/or surrogate decision maker is listed in the patient's medical record. I have personally reviewed patient's chart notes from PCP, specialists, diagnostic imaging, and laboratory results.
[2022-09-20] MEDS: ATORVASTATIN 20 MG TABLET PO (23:39)
[2022-09-20] MEDS: SENNOSIDES 8.6 MG TABLET 17.2 MG PO (23:39)
[2022-09-20 23:52] LABS: Ammonia (NH3) < 9 umol/L (9-30)
[2022-09-21] VITALS (39 sets, daily range): BP systolic 104–185; BP diastolic 53–80; PULSE 48–75; RESP 13–30; TEMP 36.6; O2SAT 93–99
[2022-09-21 00:01] LABS: NT-proBNP (BNP-Adult 18+) 123 pg/mL (<450)
[2022-09-21] MEDS: SODIUM CHLORIDE 0.9% 1,000 ML 100 ML IV ×2 (00:14→11:30)
[2022-09-21 07:06] LABS: Add Manual Diff / Slide Review NO; Basophils Absolute Auto 0 /uL (0-100); Basophils Percent Auto 0.3 % (0-2); Eosinophils Absolute Auto 100 /uL (0-450); Eosinophils Percent Auto 2.2 % (2-4); Hematocrit 34.6 % (41-53); Lymphocytes Absolute Auto 500 /uL (1100-4500); Lymphocytes Percent Auto 12.8 % (25-40); Mean Corpuscular HGB Conc 34.5 % (30-36); Mean Corpuscular Hemoglobin 30.6 PG (26-34); Mean Corpuscular Volume 88.7 fL (80-100); Monocytes Absolute Auto 300 /uL (0-900); Monocytes Percent Auto 8.1 % (3-14); Neutrophils Absolute Auto 2800 /uL (1500-7000); Neutrophils Percent Auto 76.6 % (50-75); Platelet Count 185 X10^3/uL (150-400); Red Blood Cell Count 3.91 X10^6/uL (4.5-5.9); Red Cell Distribution Width 12.9 % (11.6-14.8); White Blood Cell Count 3.6 X10^3/uL (4.5-11.0)
[2022-09-21 07:12] LABS: Cholesterol 128 mg/dL (140-199); HDL Cholesterol 59 mg/dL (40-60); LDL Cholesterol Calculated 31 mg/dL (<100); Triglycerides 191 mg/dL (35-150)
[2022-09-21 07:20] LABS: Blood Urea Nitrogen 23 mg/dL (9-20); Calcium 9.2 mg/dL (8.4-10.2); Carbon Dioxide 26 mmol/L (22-32); Chloride 105 mmol/L (98-107); Creatine Kinase 168 U/L (55-170); Estimated Glomerular Filt Rate > 60 mL/min (>60); Ethanol (ETOH) 71 mg/dL; Glucose 91 mg/dL (80-110); HEMOLYSIS < 15 (0-50); Potassium 4.4 mmol/L (3.4-5.1); Sodium 141 mmol/L (137-145)
[2022-09-21 07:25] LABS: Troponin I < 0.012 ng/mL (0.01-0.034)
[2022-09-21 07:35] LABS: CKMB % Relative Index 2.7 % (1.5-5.0); Creatine Kinase MB 4.47 ng/mL (<2.37)
[2022-09-21] MEDS: FOLIC ACID 1 MG TABLET PO (08:35)
[2022-09-21] MEDS: MULTIVITAMIN 1 TABLET 1 TAB PO (08:35)
[2022-09-21] MEDS: THIAMINE 100 MG TABLET PO (08:35)
[2022-09-21] MEDS: ASPIRIN EC 325 MG TABLET PO (08:35)
--- NOTE | 2022-09-21 12:40 | PC.NURSE ---
Pt ambulated with stand by assist and did not require any assistive devices. Pt stated that he did not feel dizzy or lightheaded while ambulating.
--- NOTE | 2022-09-21 12:58 | CM.IDA ---
Initial DCP Assessment Patient is 82 y/o male who presents to via EMS due to concern for TIA like symptoms. Patient has hx of Prostate Cancer, ETOH use, and hypertensive urgency. Patient was admitted due to concern for TIA and ETOH intoxication. Patient's PCP is Dr. Tish Mcnamara, Patient's insurance is Medicare and [employer]. CONVEYOR SYSTEM OPERATOR enters room to meet with patient, present in room is patient's female friend that lives with him. Patient endorses he resides in [place], patient endorses he drives and is independent with ADLs. Patient endorses that the Hospitalist just spoke with him and he was informed that he will be discharging today. Patient denies concerns, patient denies DCP needs and indicates he is ready to discharge to home. Per RN, patient's CIWA is zero. Plan: Patient to d/c to home today with friend upon medical clearance, No DCP needs at this time. EASTON Ortega Discharge Planning/Care Management CM Discharge Assessment Start: 09/21/22 12:49 Freq: Status: Active Protocol: Document 09/21/22 12:56 LN (Rec: 09/21/22 12:58 LN [id number]) Discharge Planning Assessment Assigned Health And Fitness Instructor EASTON Green DPOA/Assigned Designee Name Son: Doug Man Contact Information [phone] Advance Directives? Yes Advance Directives on File No History Provided By Patient,Friend,Medical Record Has Patient been admitted in last 30 No days? Prior Living Arrangements House Household Members friend(s) Type of transporation used prior to Drives own vehicle admit Independent with ADL's Yes Is patient alert and oriented? Yes Discharge Plan Home Referrals Initiated None needed Please Provide Date Initial DC 09/21/22 Assessment Was Performed
--- NOTE | 2022-09-21 14:10 | PM.DS.1 ---
History of Present Illness History of Present Illness Chief complaint: CODE STROKE Narrative: 2-year-old male with a history of prostate cancer, former smoker, alcohol abuse who presented to the ED for evaluation of stroke-like symptoms.? Last known well 0, EMS was activated and they found him to have slurring of speech, left-sided facial droop left arm was drooping and hit the bed and ataxia.? He is brought in as a code stroke and symptoms are significantly improved though still slightly present on arrival, after imaging symptoms completely resolved.? Patient did demonstrate hypertensive urgency without the diagnosis of hypertension in the ED 198/95, 186/86, and slightly tachypneic respiratory rates 25-27. ?On admit patient denies chest pain, shortness in breath, headache, changes in vision, difficulty swallowing, speech impairment, weakness, numbness, tingling, difficulty with ambulation, recent falls, head injury, LOC, fever, body aches, chills, cough, recent exposure to illness, abdominal pain, nausea, vomiting, urinary incontinence/retention, dysuria, frequency, urgency, hematuria, bowel changes, constipation, incontinence, melena, rashes, recent changes to medication, illness, injury, or trauma.? Patient reports that he does not drink regularly and had 1 shot glass of alcohol this evening. At the time of admit patient is asymptomatic, and hemodynamically stable BP 128/56, HR 53, RR 20, O2 saturation 96% on room air.? H&H 12.6/36.7, BUN 22, TCK 21.5, CK-2:5.82, RI 2.7, initial troponins negative, COVID negative, ETOH 225.? CTA H/N 70-80% narrowing of left ICA, 50% narrowing of left VA, chest x-ray portable limited no acute cardiopulmonary processes appreciated, head CT negative for any acute intracranial process.? Patient admitted for TIA hypertensive urgency without the diagnosis of hypertension and alcohol intoxication. Discharge Providers Provider Date of admission: 09/20/22 21:38 Discharge Date: 09/21/22 Primary care physician: Tish Mcnamara MD Consults: 09/20/22 22:58 Consult to Dietitian, Adult Routine Comment: Reason For Exam: ETOH intoxication 09/20/22 23:04 Consult to Occupational Therapy Evaluate & Treat Comment: Physician Instructions: Evaluate and treat Consult to Physical Therapy Evaluate & Treat Comment: Physician Instructions: Evaluate and Treat Consult to Speech Therapy Evaluate & Treat Comment: Physician Instructions: Evaluate and treat 09/20/22 23:08 Consult to Discharge Planning Routine Comment: Discharge provider: Cesar Freedman MD Summary Hospital Course Discharge Diagnosis: 1. Transient ischemic attack 2. Left carotid artery stenosis 3. Alcohol intoxication with dependency 4. Essential hypertension 5. Hyperlipidemia 6. Advanced stage prostate cancer 09/20/2022 PROCEDURE:? MR HEAD/BRAIN WO CON ? INDICATIONS:? TIA ? TECHNIQUE:? Non-contrast axial T1 spin echo, axial T2 fast spin echo, sagittal and axial FLAIR, coronal T2 fast spin echo, axial gradient echo, axial diffusion and ADC through the brain.? ? COMPARISON:? [facility], CT, CT ANGIO HEAD AND NECK, 09/20/2022, 19:51. ? FINDINGS:? Image quality:? Excellent.? ? CSF spaces:? Ventricles appear symmetric in size and shape.? Basal cisterns are patent.? No extra-axial fluid collections.? ? Brain:? No intracranial bleeds or mass effects.? There is cerebral volume loss for age.? There are minimal periventricular and deep white matter chronic small vessel ischemic changes.? Brainstem appears normal.? Diffusion-weighted images show no acute ischemic insults.? No chronic ischemic insults.? Normal intravascular flow voids are present.? ? Skull and face:? Calvarial bone marrow is normal in signal.? Orbits are normal.? ? Sinuses:? Sinuses and mastoids are clear.? ? IMPRESSION:? Negative brain MRI for patient age.? No evidence acute intracranial process. ? ? Dictated by: Rodney Foster M.D. on 09/21/2022 at 8:17 ? ? Approved by: Rodney Foster M.D. on 09/21/2022 at 8:18 09/20/2022 PROCEDURE:? CT ANGIO HEAD AND NECK ? INDICATIONS:? stroke, lkw 1900 ? TECHNIQUE:? Noncontrast images were performed earlier in the day and not repeated.? ? After the administration of intravenous contrast, 1 mm thick sections acquired from the aortic arch through the [place] of [place].? Post-contrast 4.5 mm thick sections then re-acquired from the foramen magnum to the vertex.? 3-dimensional qecmtbt-zdpzteukn-cxbwlsrzuj (MIP) and/or volume rendering reformats were acquired of the central intracranial vasculature and neck separately. For radiation dose reduction, the following was used:? automated exposure control, adjustment of mA and/or kV according to patient size.? ? COMPARISON:? [facility], CR, XR CHEST 1V, 09/20/2022, 19:53. ? FINDINGS:? Image quality:? This examination is limited by involuntary motion artifact.? ? ? BRAIN:? CSF spaces:? Ventricles are normal in size and shape.? Basal cisterns are patent.? No extra-axial fluid collections.? ? Brain:? No midline shift.? No intracranial bleeds or masses.? Judge-white matter interface appears intact.? ? Skull and face:? Calvarium and facial bones appear intact, without suspicious lesions.? Orbits appear normal.? ? Sinuses:? Sinuses and mastoids are clear.? ? HEAD CT ANGIOGRAPHY:? Anterior circulation:? Intracranial internal carotid arteries demonstrate generalized atherosclerotic irregularity and calcification, with 30-40% narrowing seen on each side.. ?The flow within the paired anterior cerebral arteries is normal and symmetric.? The flow within the middle cerebral arteries is normal and symmetric.? The anterior communicating artery is seen.? No aneurysms are seen.? ? Posterior circulation:? Visualized portions of the vertebral arteries demonstrate normal caliber, and join to form a normal appearing basilar artery.? Flow within the posterior cerebral arteries is normal and symmetric.? No aneurysms are seen.? ? NECK CT ANGIOGRAPHY:? Carotid system:? The great vessels demonstrate a conventional anatomy as they arise from the aortic arch.? The origins of the common carotid arteries appear patent.? The common carotid arteries demonstrate normal caliber and courses.? The bifurcation regions demonstrate atherosclerotic irregularity and calcification, with 70-80% narrowing involving the left proximal internal carotid artery, as on series 7, image 80 and on series 9, image 46. No hemodynamically significant stenosis can be seen involving the left proximal internal carotid artery. The more distal internal carotid arteries demonstrate normal course and caliber.? ? Posterior circulation:? Focal calcification can be seen involving the origin left vertebral artery, with approximately 50% narrowing.? No significant narrowing can be seen involving the origin of the right vertebral artery.? The more distal extracranial vertebral arteries are within normal limits. ? Soft tissues:? Visualized neck soft tissues demonstrate no suspicious abnormalities.? ? Bones:? No suspicious bony lesions.? Visualized cervical spine appears normally aligned.? Moderate cervical spine degenerative change can be seen. ? ? IMPRESSION:? No significant intracranial arterial abnormality is seen.? ? There is 70-80% narrowing seen involving the origin of the left internal carotid artery. ? 50% narrowing involving the origin of the left vertebral artery. ? Any quantitative measurements of stenosis were performed using NASCET criteria.? ? ? Dictated by: Liam Domingo M.D. on 09/20/2022 at 19:21 ? ? Approved by: Liam Domingo M.D. on 09/20/2022 at 19:25 ?? Hospital Course: Patient had resolution of TIA symptoms presenting with slurred speech and left-sided weakness. Brain MR did not show CVA. CTA showed moderate to severe left carotid artery stenosis which was incidental finding and unrelated to his current TIA presentation. Tele did not show evidence of atrial fibrillation. He does have a first-degree AV block and PACs. Patient also noted to have significant elevated alcohol level on admission with family reporting significant chronic alcohol use. Patient is being discharged on aspirin and clopidogrel combination therapy. Also increased his atorvastatin dosing to high dose 80 mg daily. Patient is advised to quit drinking. Patient is advised he should have outpatient vascular surgery consultation for the left carotid artery stenosis. PCP will need to refer him for this. Patient will need to complete TIA workup with outpatient echo which can be arranged by PCP. Status at Discharge Cognitive/behavioral status at discharge: oriented Functional status at discharge: independent ambulation Overall status at discharge: patient is back to baseline Time Spent with Patient Time spent: Greater than 30 minutes Exam Vital Signs (past 8 hours): - 09/21/22 06:30 09/21/22 07:00 09/21/22 07:01 Temperature Pulse Rate 49 L 50 L Respiratory Rate 13 Blood Pressure 120/58 L Blood Pressure [Left Arm] Pulse Oximetry 98 97 Oxygen Delivery Method 09/21/22 07:01 09/21/22 07:23 09/21/22 08:30 Temperature 97.9 F Pulse Rate 50 L 75 Respiratory Rate 16 Blood Pressure Blood Pressure [Left Arm] Pulse Oximetry 98 98 Oxygen Delivery Method Room Air 09/21/22 09:00 09/21/22 09:30 09/21/22 10:00 Temperature Pulse Rate 65 67 62 Respiratory Rate 16 30 H 20 Blood Pressure Blood Pressure [Left Arm] Pulse Oximetry 99 99 97 Oxygen Delivery Method 09/21/22 10:30 09/21/22 11:00 09/21/22 11:19 Temperature Pulse Rate 59 L 60 Respiratory Rate 21 18 Blood Pressure 185/78 H Blood Pressure [Left Arm] Pulse Oximetry 93 97 Oxygen Delivery Method 09/21/22 11:19 09/21/22 11:45 09/21/22 12:40 Temperature Pulse Rate 53 L 55 L Respiratory Rate 17 16 20 Blood Pressure Blood Pressure [Left Arm] 152/74 H Pulse Oximetry 98 98 Oxygen Delivery Method Room Air 09/21/22 11:30 09/21/22 11:44 09/21/22 11:44 Temperature Pulse Rate 63 53 L Respiratory Rate 28 H 24 Blood Pressure 152/74 H Blood Pressure [Left Arm] Pulse Oximetry 96 97 Oxygen Delivery Method 09/21/22 12:00 09/21/22 12:30 09/21/22 13:24 Temperature Pulse Rate 54 L 67 Respiratory Rate 20 20 Blood Pressure 140/63 Blood Pressure [Left Arm] Pulse Oximetry 96 98 Oxygen Delivery Method Room Air Room Air 09/21/22 13:24 Temperature Pulse Rate 58 L Respiratory Rate 20 Blood Pressure Blood Pressure [Left Arm] Pulse Oximetry 97 Oxygen Delivery Method Room Air Oxygen Delivery Method Room Air Narrative Exam Narrative: Patient is alert and oriented and in no acute distress. Speech is fluent without aphasia. No unilateral weakness. Gait normal. Objective Labs 09/21/22 05:40 09/21/22 05:40 Labs: Laboratory Results - last 24 hr 09/20/22 09/20/22 09/20/22 19:15 19:50 19:50 WBC 5.1 RBC 4.13 L Hgb 12.6 L Hct 36.7 L MCV 88.9 MCH 30.5 MCHC 34.3 RDW 12.9 Plt Count 183 Neut % (Auto) 72.5 Lymph % (Auto) 17.6 L [place] % (Auto) 6.7 Eos % (Auto) 2.9 Baso % (Auto) 0.3 Neut # (Auto) 3700 Lymph # (Auto) 900 L [place] # (Auto) 300 Eos # (Auto) 100 Baso # (Auto) 0 PT 11.4 INR 1.0 APTT 30 Sodium Potassium Chloride Carbon Dioxide BUN Creatinine Estimated GFR BUN/Creatinine Ratio Glucose Calcium Magnesium Total Bilirubin AST ALT Alkaline Phosphatase Ammonia Total Creatine Kinase CK-MB (CK-2) CK-MB (CK-2) Rel Index Troponin I NT-Pro-B Natriuret Pep Total Protein Albumin Globulin Albumin/Globulin Ratio Triglycerides Cholesterol LDL Cholesterol, Calc HDL Cholesterol Ethyl Alcohol 225 H SARS-CoV-2 (PCR) 09/20/22 09/20/22 09/20/22 19:50 20:13 23:33 WBC RBC Hgb Hct MCV MCH MCHC RDW Plt Count Neut % (Auto) Lymph % (Auto) [place] % (Auto) Eos % (Auto) Baso % (Auto) Neut # (Auto) Lymph # (Auto) [place] # (Auto) Eos # (Auto) Baso # (Auto) PT INR APTT Sodium 139 Potassium 4.1 Chloride 105 Carbon Dioxide 23 BUN 22 H Creatinine 1.05 Estimated GFR > 60 BUN/Creatinine Ratio 21.0 Glucose 111 H Calcium 9.2 Magnesium 2.2 Total Bilirubin 1.3 AST 29 ALT 25 Alkaline Phosphatase 79 Ammonia < 9 L Total Creatine Kinase 215 H CK-MB (CK-2) 5.82 H CK-MB (CK-2) Rel Index 2.7 Troponin I < 0.012 NT-Pro-B Natriuret Pep Total Protein 6.9 Albumin 4.5 Globulin 2.4 Albumin/Globulin Ratio 1.9 Triglycerides Cholesterol LDL Cholesterol, Calc HDL Cholesterol Ethyl Alcohol SARS-CoV-2 (PCR) Negative 09/20/22 09/21/22 09/21/22 23:33 05:40 05:40 WBC 3.6 L RBC 3.91 L Hgb 12.0 L Hct 34.6 L MCV 88.7 MCH 30.6 MCHC 34.5 RDW 12.9 Plt Count 185 Neut % (Auto) 76.6 H Lymph % (Auto) 12.8 L [place] % (Auto) 8.1 Eos % (Auto) 2.2 Baso % (Auto) 0.3 Neut # (Auto) 2800 Lymph # (Auto) 500 L [place] # (Auto) 300 Eos # (Auto) 100 Baso # (Auto) 0 PT INR APTT Sodium Potassium Chloride Carbon Dioxide BUN Creatinine Estimated GFR BUN/Creatinine Ratio Glucose Calcium Magnesium Total Bilirubin AST ALT Alkaline Phosphatase Ammonia Total Creatine Kinase CK-MB (CK-2) CK-MB (CK-2) Rel Index Troponin I NT-Pro-B Natriuret Pep 123 Total Protein Albumin Globulin Albumin/Globulin Ratio Triglycerides 191 H Cholesterol 128 L LDL Cholesterol, Calc 31 HDL Cholesterol 59 Ethyl Alcohol SARS-CoV-2 (PCR) 09/21/22 09/21/22 09/21/22 05:40 05:40 05:40 WBC RBC Hgb Hct MCV MCH MCHC RDW Plt Count Neut % (Auto) Lymph % (Auto) [place] % (Auto) Eos % (Auto) Baso % (Auto) Neut # (Auto) Lymph # (Auto) [place] # (Auto) Eos # (Auto) Baso # (Auto) PT INR APTT Sodium 141 Potassium 4.4 Chloride 105 Carbon Dioxide 26 BUN 23 H Creatinine 0.96 Estimated GFR > 60 BUN/Creatinine Ratio 24.0 H Glucose 91 Calcium 9.2 Magnesium 2.0 Total Bilirubin AST ALT Alkaline Phosphatase Ammonia Total Creatine Kinase 168 CK-MB (CK-2) 4.47 H CK-MB (CK-2) Rel Index 2.7 Troponin I < 0.012 NT-Pro-B Natriuret Pep Total Protein Albumin Globulin Albumin/Globulin Ratio Triglycerides Cholesterol LDL Cholesterol, Calc HDL Cholesterol Ethyl Alcohol 71 H SARS-CoV-2 (PCR) [facility] Medical History Atrioventricular block, first degree Bradycardia Elevated liver function tests Enlarged prostate Fatty liver Former consumption of alcohol Former smoker GERD (gastroesophageal reflux disease) Pneumonia Prostate cancer Sinusitis Surgical History History of colonoscopy (~2014) History of nasal surgery History of urinary tract surgery S/P TURP (transurethral resection of prostate) Family History Mother Colon cancer Father Lung cancer Social History household members: friend(s) occupational status: previously employed Smoking Status: Former smoker alcohol intake: current (once a while, wine or beer.) substance use type: does not use Discharge Plan Discharge Plan Patient Disposition: Home Provider Discharge Comment: You were admitted due to TIA. MRI did not show a stroke. The CT angiogram showed 70-80% narrowing of the left internal carotid artery. This is an incidental finding and not the source of your TIA. I am sending you home on 2 blood thinners and new dose of atorvastatin for cholesterol lowering. Dr. Mcnamara will need to refer you to vascular surgery for finding of left carotid narrowing. Dr. Mcnamara will refer you for outpatient ECHO. Please stop or minimize or alcohol use. Discharge orders & Medications Prescriptions: New aspirin [Adult Aspirin Regimen] 81 mg tablet,delayed release (DR/EC) 81 mg PO DAILY Qty: 30 0RF Rx Instructions: OTC clopidogrel 75 mg tablet 75 mg PO DAILY Qty: 30 0RF atorvastatin 80 mg tablet 80 mg PO BEDTIME Qty: 30 0RF Continued bicalutamide [Casodex] 50 mg Tablet 50 mg PO DAILY calcium carbonate [Calcium 500] 500 mg calcium (1,250 mg) Tablet 500 mg PO DAILY cholecalciferol (vitamin D3) [Vitamin D3] 50 mcg (2,000 unit) Tablet 2,000 unit DAILY losartan 100 mg tablet 100 mg PO DAILY Patient Comments: take 1 tablet by mouth once daily Nubeqa 300 mg tablet 600 mg PO BID Discontinued atorvastatin 10 mg tablet 10 mg PO DAILY Patient Comments: take 1 tablet by mouth once daily Follow up/Referrals: Tish Mcnamara MD [Primary Care Provider] - Diet/Activity/Treatments Diet: Regular Visit Report/Discharge Packet Stand Alone Forms: Patient Portal/API, Stroke Signs & Symptoms Discharge Data Primary Care Provider: Tish Mcnamara Attending Provider: Chioma Joy Admit Date/Time: 09/20/22 21:38
[2022-09-22 06:36] LABS: x Labcorp Estim. Avg Glu (eAG) 108 mg/dL (.); x Labcorp Hemoglobin A1c 5.4 % (4.8-5.6)
== END 2022-09-21 14:00 | disposition home or self-care (01) ==
LOC: ED 20:18 → AC 21:40
PROVIDERS: Admitting Provider Nurse Practitioner Family; Emergency Provider Emergency Medicine; PCP Internal Medicine; Referring Provider Emergency Medicine; Visit Provider Nurse Practitioner Family
DX: G45.9 Transient cerebral ischemic attack, unspecified (principal); I16.0 Hypertensive urgency; F10.129 Alcohol abuse with intoxication, unspecified; Y90.7 Blood alcohol level of 200-239 mg/100 ml; C61 Malignant neoplasm of prostate; E78.5 Hyperlipidemia, unspecified; R29.702 NIHSS score 2; Z20.822 Contact with and (suspected) exposure to COVID-19
CPT/HCPCS: 36415; 70450; 70496; 70498; 70551; 71045; 80048; 80053; 80061; 80320; 82140; 82550; 82553; 83036; 83735; 83880; 84484; 85025; 85610; 85730; 87635; 93005; 96360; 96361; 99285; C9803; G0378

== ENCOUNTER → 2022-10-04 06:47 | Outpatient (CLI) | payer MEDICARE, OTHER, SELFPAY ==
--- NOTE | 2022-10-04 | DI.US.S_ITS ---
PROCEDURE: US CAROTID DOPPLER BI INDICATIONS: TIA TECHNIQUE: Color and pulse Doppler interrogation was performed of both carotid systems, with image documentation and velocity measurements. COMPARISON: None. FINDINGS: Stenosis calculations are based on SRU (Society of Radiologists in Ultrasound) criteria. Right side: Brachial blood pressure: 136/76 mm Hg. Common carotid artery peak systolic velocity: 82 cm/sec. Internal carotid artery peak systolic velocity: 84 cm/sec. Internal carotid artery end diastolic velocity: 30 cm/sec. External carotid artery peak systolic velocity: 44 cm/sec. ICA/CCA peak systolic ratio: 0.9. Judge scale imaging description: Mild atheromatous plaque is present at the bifurcation. Percent internal carotid artery stenosis: Less than 50% stenosis. Vertebral artery: Flow direction is antegrade. Left side: Brachial blood pressure: 143/76 mm Hg. Common carotid artery peak systolic velocity: 89 cm/sec. Internal carotid artery peak systolic velocity: 97 cm/sec. Internal carotid artery end diastolic velocity: 21 cm/sec. External carotid artery peak systolic velocity: 52 cm/sec. ICA/CCA peak systolic ratio: 1.1. Judge scale imaging description: Mild atheromatous plaque is present in the distal common carotid and at the carotid bifurcation. Percent internal carotid artery stenosis: Less than 50%. Vertebral artery: Flow direction is antegrade. IMPRESSION: Less than 50% stenosis of the bilateral internal carotid arteries. Dictated by: Rakel Pedersen M.D. on 10/04/2022 at 16:45 Approved by: Rakel Pedersen M.D. on 10/04/2022 at 16:46
--- NOTE | 2022-10-04 | DI.ECHO.S_ITS ---
[facility] +---------+ : : [address] [place] : : : : [id number] : : : : Phone: [phone] Echocardiogram Report + + :Name: FADI FENTON Study Date: 10/04/2022 Height: 70.5 in: :[facility] ReadingLocation: Weight: 190 lb : : Gender: Male BSA: 2.1 m2 : :: 1940 Age: 82 yrs BP: 135/77 mmHg: :Reason For Study: TIA : :Ordering Physician: RANDY, : :EMILY Performed By: Vera Cabrales : :Referring: EMILY PADILLA : + + Interpretation Summary The ejection fraction is estimated to be 60-65%. There is no Doppler evidence for an interatrial shunt. There is mild to moderate mitral regurgitation. The aortic valve is mildly calcified. There is trace aortic regurgitation. There is mild to moderate tricuspid regurgitation. Right ventricular systolic pressure is estimated to be 28 mmHg plus the clinically estimated CVP which cannot be estimated on this exam. Procedure: A two-dimensional transthoracic echocardiogram with color flow and Doppler was performed. The study quality was technically adequate. There is no prior echocardiogram noted for this patient. The patient was in sinus bradycardia with heart rates between 53-64 bpm during the exam. Left Ventricle: Proximal septal thickening is noted. The left ventricle is normal in size. The ejection fraction is estimated to be 60-65%. Left ventricular wall motion is normal. Right Ventricle: The right ventricle is at the upper limits of normal in size. The right ventricular systolic function is normal. Atria: The left atrium is severely dilated. The right atrium is moderately dilated. There is no Doppler evidence for an interatrial shunt. Mitral Valve: There is mild mitral annular calcification. The mitral valve is normal in structure and function. There is mild to moderate mitral regurgitation. Aortic Valve: The aortic valve is trileaflet. The aortic valve is mildly calcified. There is mild aortic valve sclerosis. There is no aortic valve stenosis. There is trace aortic regurgitation. Tricuspid Valve: The tricuspid valve is normal in structure and function. There is mild to moderate tricuspid regurgitation. Right ventricular systolic pressure is estimated to be 28 mmHg plus the clinically estimated CVP which cannot be estimated on this exam. Pulmonic Valve: The pulmonic valve is not well visualized. Great Vessels: The aortic root is normal size. The dimensions of the ascending aorta are normal. The inferior vena cava was not well visualized. Pericardium/ Pleura There is no pericardial effusion. There is no pleural effusion. MMode/2D Measurements & Calculations LVIDd: 5.2 cm LVOT diam: 2.5 cm LVIDs: 3.2 cm Ao root diam: 3.7 cm FS: 37.5 % asc Aorta Diam: 3.5 cm IVSd: 0.86 cm Ao Arch Diam (Prox Trans): 3.8 cm LVPWd: 0.97 cm LV jacobs. diameter/BSA (cm/m^2): 2.5 LV sys. diameter/BSA (cm/m^2): 1.6 LA A2 area: 30.0 cm2 RA long axis: 6.3 cm LA A4 area: 28.8 cm2 RA area: 26.0 cm2 LA length (vol): 6.5 cm RA vol: 91.7 ml LA vol: 112.5 ml RA : 44.6 ml/m2 LA vol index: 54.7 ml/m2 RVD1 (basal): 4.1 cm TAPSE: 2.5 cm Doppler Measurements & Calculations Ao V2 max: 182.7 cm/sec LVOT Max Ubaldo: 101.9 cm/sec Ao V2 mean: 118.3 cm/sec LV V1 max P.2 mmHg Ao max P.4 mmHg LV V1 VTI: 26.0 cm Ao mean P.5 mmHg JORGE(I,D): 2.8 cm2 Ao V2 VTI: 45.9 cm JORGE(V,D): 2.7 cm2 sev ratio: 0.57 JORGE indexed to BSA (cm^2/m^2): 1.4 MV E max ubaldo: 70.1 cm/sec TR max ubaldo: 263.5 cm/sec MV A max ubaldo: 55.6 cm/sec TR max P.8 mmHg MV E/A: 1.3 PA V2 max: 103.2 cm/sec Med Peak E' Ubaldo: 6.8 cm/sec PA V2 mean: 68.4 cm/sec E/E' med: 10.3 PA mean P.1 mmHg Lat Peak E' Ubaldo: 7.0 cm/sec PA pr(Accel): 34.5 mmHg E/E' lat: 10.1 E/e' average: 10.2 MV dec time: 0.22 sec SV(LVOT): 128.1 ml Reading Physician:04:47 PM
== END ==
PROVIDERS: PCP Internal Medicine; Referring Provider Internal Medicine; Visit Provider Internal Medicine
DX: G45.9 Transient cerebral ischemic attack, unspecified (principal); I08.3 Combined rheumatic disorders of mitral, aortic and tricuspid valves; I65.23 Occlusion and stenosis of bilateral carotid arteries
CPT/HCPCS: 93306; 93880

== ENCOUNTER → 2023-06-19 11:36 | Outpatient (CLI) | payer MEDICARE, OTHER, SELFPAY ==
[2023-06-19 14:52] LABS: Prostate Specific Antigen 1.85 ng/mL (0.10-4.00)
== END ==
PROVIDERS: PCP Internal Medicine; Referring Provider Internal Medicine Medical Oncology; Visit Provider Internal Medicine Medical Oncology
DX: C61 Malignant neoplasm of prostate (principal)
CPT/HCPCS: 36415; 84153

== ENCOUNTER 2023-09-12 18:10 | Emergency (ER) | payer MEDICARE, OTHER, SELFPAY ==
[2023-09-12] VITALS (10 sets, daily range): BP systolic 112–135; BP diastolic 59–72; PULSE 55–75; RESP 16–24; TEMP 37.7; O2SAT 93–97; BMI 26.5
--- NOTE | 2023-09-12 19:27 | DI.RAD.S_ITS ---
PROCEDURE: XR CHEST 1V INDICATIONS: eval for PNA TECHNIQUE: One view of the chest was acquired. COMPARISON: [facility], [place], XR CHEST 1V, 09/20/2022, 19:53. [facility], [place], CHEST 2 VIEW, 01/25/2015, 15:06. FINDINGS: Surgical changes and devices: Right chest wall port. Lungs and pleura: Lungs are clear. No pleural effusions or pneumothorax. Bibasilar scarring. Mediastinum: Mediastinal contours appear normal. Heart size is normal. Bones and chest wall: No suspicious bony lesions. Overlying soft tissues appear unremarkable. IMPRESSION: No acute cardiopulmonary abnormality is seen. Dictated by: Pascual Aly M.D. on 09/12/2023 at 20:26 Approved by: Pascual Aly M.D. on 09/12/2023 at 20:26
[2023-09-12] MEDS: SODIUM CHLORIDE 0.9% 1,000 ML 1000 ML IV (20:05)
[2023-09-12 20:10] LABS: Add Manual Diff / Slide Review NO; Basophils Absolute Auto 0 /uL (0-100); Basophils Percent Auto 0.4 % (0-2); Eosinophils Absolute Auto 0 /uL (0-450); Hematocrit 27.9 % (41-53); Hemoglobin 9.7 g/dL (13.5-17.5); Lymphocytes Absolute Auto 100 /uL (1100-4500); Lymphocytes Percent Auto 3.2 % (25-40); Mean Corpuscular HGB Conc 34.8 % (30-36); Mean Corpuscular Hemoglobin 30.4 PG (26-34); Mean Corpuscular Volume 87.3 fL (80-100); Monocytes Absolute Auto 0 /uL (0-900); Monocytes Percent Auto 1.6 % (3-14); Neutrophils Absolute Auto 1900 /uL (1500-7000); Neutrophils Percent Auto 94.8 % (50-75); Platelet Count 86 X10^3/uL (150-400); Red Cell Distribution Width 12.9 % (11.6-14.8)
[2023-09-12 20:28] LABS: Alanine Aminotransferase 21 IU/L (<50); Albumin 3.2 g/dL (3.5-5.0); Albumin Globulin Ratio 1.4 (1.0-2.8); Alkaline Phosphatase 48 U/L (38-126); Aspartate Aminotransferase 31 IU/L (17-59); BUN Creatinine Ratio 25.8 (6-22); Bilirubin Total 1.2 mg/dL (0.2-1.3); Blood Urea Nitrogen 23 mg/dL (9-20); Calcium 8.1 mg/dL (8.4-10.2); Carbon Dioxide 26 mmol/L (22-32); Chloride 101 mmol/L (98-107); Creatine Kinase 133 U/L (55-170); Estimated Glomerular Filt Rate > 60 mL/min (>60); Globulin 2.3 g/dL (1.7-4.1); Glucose 119 mg/dL (80-110); HEMOLYSIS < 15 (0-50); Lipase 78 U/L (23-300); Potassium 3.4 mmol/L (3.4-5.1); Sodium 131 mmol/L (137-145); Total Protein 5.5 g/dL (6.3-8.2)
[2023-09-12 20:40] LABS: Troponin I 0.014 ng/mL (0.01-0.034)
[2023-09-12 20:45] LABS: Procalcitonin 0.17 ng/mL (<0.5)
--- NOTE | 2023-09-12 21:00 | ED_ITS ---
HPI - General Adult General Chief complaint: Weakness Stated complaint: lightheaded, weakness, fever sent by PCP Time Seen by Provider: 09/12/23 19:25 Source: patient and family Mode of arrival: Wheelchair History of Present Illness HPI narrative: Patient is an 83-year-old male who on Friday (2 days ago) had 1st IV infusion of chemotherapy for prostate cancer back he states the procedure went well. Yesterday he felt well. Today he felt more poorly. [place] somewhat weak and lightheaded. His reports he had a fever at home. At the time of my evaluation he states he was feeling better. No headache, sore throat, sinus congestion, chest pain, shortness of breath, abdominal pain, nausea vomiting, no urinary symptoms. He still has his prostate. He states he feels like he is emptying his bladder. No skin rashes. Related Data Home Medications Medication Instructions Recorded Confirmed bicalutamide 50 mg tablet (Casodex) 50 mg PO DAILY 09/16/19 09/16/19 calcium carbonate 500 mg calcium 500 mg PO DAILY 09/16/19 09/16/19 (1,250 mg) tablet (Calcium 500) cholecalciferol (vitamin D3) 50 2,000 unit DAILY 09/16/19 09/16/19 mcg (2,000 unit) tablet (Vitamin D3) darolutamide 300 mg tablet (Nubeqa) 600 mg PO BID 09/21/22 09/21/22 losartan 100 mg tablet 100 mg PO DAILY 09/21/22 09/21/22 Previous Rx's Medication Instructions Recorded aspirin 81 mg tablet,delayed 81 mg PO DAILY #30 tabs 09/21/22 release (Adult Aspirin Regimen) atorvastatin 80 mg tablet 80 mg PO BEDTIME #30 tabs 09/21/22 clopidogrel 75 mg tablet 75 mg PO DAILY #30 tabs 09/21/22 Allergies Allergy/AdvReac Type Severity Reaction Status Date / Time venom-honey bee Allergy Severe swelling Verified 08/04/18 09:23 [bee venom (honey bee)] of injured area Review of Systems Review of Systems ROS Unobtainable: All systems reviewed & are unremarkable except as noted in HPI and below Patient History Medical History Former consumption of alcohol Former smoker GERD (gastroesophageal reflux disease) Fatty liver Elevated liver function tests Pneumonia Sinusitis Atrioventricular block, first degree Bradycardia Prostate cancer Enlarged prostate Surgical History S/P TURP (transurethral resection of prostate) History of nasal surgery History of colonoscopy (~2014) History of urinary tract surgery Family History Mother Colon cancer Father Lung cancer Social History household members: friend(s) occupational status: previously employed Smoking Status: Former smoker alcohol intake: current (once a while, wine or beer.) substance use type: does not use Smoking Status: Former smoker Substance Use Type: does not use Exam Initial Vital Signs Initial Vital Signs: Vital Signs Temperature 99.8 F H 09/12/23 18:15 Pulse Rate 70 09/12/23 18:15 Respiratory Rate 16 09/12/23 18:15 Blood Pressure 135/66 09/12/23 18:15 Pulse Oximetry 97 09/12/23 18:15 Oxygen Delivery Method Room Air 09/12/23 18:15 Const General: cooperative, comfortable and No ill appearing HENMT Head: normal to inspection and normocephalic Resp Effort & Inspection: normal respiratory effort Auscultation: clear to auscultation bilaterally Cardio Rate: regular rate Rhythm: regular rhythm GI Inspection: non-distended Palpation: soft and No tender Skin General: no rashes or lesions noted Neuro General: patient alert and moves all extremities Extrem General: capillary refill normal Course Orders Ordered: ED Orders 09/12/23 19:27 XR chest 1V Stat 09/12/23 19:46 EKG-12 Lead Stat 09/12/23 20:00 Complete Blood Count AUTO DIFF Stat Comprehensive Metabolic Panel Stat Lactate (Lactic Acid) Stat Lipase Stat Procalcitonin Stat Troponin & CK Cardiac Panel Stat 09/12/23 21:01 Respiratory Panel (Film Array) Stat 09/12/23 21:13 Blood Culture Stat 09/12/23 22:24 Urine Microscopic Stat Discontinued Medications Sodium Chloride (Normal Saline 0.9%) 1,000 mls @ 1,000 mls/hr IV BOLUS ONE Stop: 09/12/23 20:25 Last Infusion: 09/12/23 22:21 Dose: Infused Documented By: Admin: 09/12/23 20:05 Dose: 1,000 mls/hr Documented By: CIARA Vital Signs Vital signs: Vital Signs - 8 hr 09/12/23 18:15 09/12/23 18:30 09/12/23 18:30 Temperature 99.8 F H Pulse Rate 70 75 Respiratory Rate 16 24 Blood Pressure 135/66 112/72 Pulse Oximetry 97 97 Oxygen Delivery Method Room Air 09/12/23 19:00 09/12/23 19:00 09/12/23 19:30 Temperature Pulse Rate 72 Respiratory Rate 24 Blood Pressure 116/66 128/60 Pulse Oximetry 96 Oxygen Delivery Method 09/12/23 19:30 09/12/23 20:00 09/12/23 20:00 Temperature Pulse Rate 66 68 Respiratory Rate 24 18 Blood Pressure 114/68 Pulse Oximetry 97 94 Oxygen Delivery Method 09/12/23 20:30 09/12/23 20:30 09/12/23 21:00 Temperature Pulse Rate 62 Respiratory Rate 20 Blood Pressure 121/62 122/69 Pulse Oximetry 93 Oxygen Delivery Method 09/12/23 21:00 09/12/23 21:30 09/12/23 21:30 Temperature Pulse Rate 61 57 L Respiratory Rate 18 22 Blood Pressure 127/64 Pulse Oximetry 94 93 Oxygen Delivery Method 09/12/23 22:00 09/12/23 22:00 09/12/23 22:30 Temperature Pulse Rate 55 L 60 Respiratory Rate 19 22 Blood Pressure 113/59 L Pulse Oximetry 94 Oxygen Delivery Method 09/12/23 22:30 Temperature Pulse Rate Respiratory Rate Blood Pressure 123/71 Pulse Oximetry Oxygen Delivery Method Medical Decision Making Lab Data Lab results reviewed: Yes I reviewed the patient's lab results. 09/12/23 20:00 09/12/23 20:00 Labs: Lab Results 09/12/23 09/12/23 09/12/23 Range/Units 20:00 21:01 22:24 WBC 2.0 L (4.5-11.0) X10^3/uL RBC 3.20 L (4.5-5.9) X10^6/uL Hgb 9.7 L (13.5-17.5) g/dL Hct 27.9 L (41-53) % MCV 87.3 (80-100) fL MCH 30.4 (26-34) PG MCHC 34.8 (30-36) % RDW 12.9 (11.6-14.8) % Plt Count 86 L (150-400) X10^3/uL Neut % (Auto) 94.8 H (50-75) % Lymph % (Auto) 3.2 L (25-40) % [place] % (Auto) 1.6 L (3-14) % Eos % (Auto) 0.0 L (2-4) % Baso % (Auto) 0.4 (0-2) % Neut # (Auto) 1900 (0257-9211) /uL Lymph # (Auto) 100 L (1484-7484) /uL [place] # (Auto) 0 (0-900) /uL Eos # (Auto) 0 (0-450) /uL Baso # (Auto) 0 (0-100) /uL Sodium 131 L (137-145) mmol/L Potassium 3.4 (3.4-5.1) mmol/L Chloride 101 (98-107) mmol/L Carbon Dioxide 26 (22-32) mmol/L BUN 23 H (9-20) mg/dL Creatinine 0.89 (0.66-1.25) mg/dL Estimated GFR > 60 (>60) mL/min BUN/Creatinine Ratio 25.8 H (6-22) Glucose 119 H (80-110) mg/dL Lactate 1.0 (0.7-2.1) mmol/L Calcium 8.1 L (8.4-10.2) mg/dL Total Bilirubin 1.2 (0.2-1.3) mg/dL AST 31 (17-59) IU/L ALT 21 (<50) IU/L Alkaline Phosphatase 48 (38-126) U/L Total Creatine Kinase 133 (55-170) U/L Troponin I 0.014 (0.01-0.034) ng/mL Total Protein 5.5 L (6.3-8.2) g/dL Albumin 3.2 L (3.5-5.0) g/dL Globulin 2.3 (1.7-4.1) g/dL Albumin/Globulin Ratio 1.4 (1.0-2.8) Lipase 78 (23-300) U/L Procalcitonin 0.17 (<0.5) ng/mL Urine RBC None seen (0-5/HPF) Urine WBC None seen (0-5/HPF) Ur Squamous Epith Cells 0-1 /hpf (0-5/HPF) Urine Bacteria None seen (None) Hyaline Casts 0-1/lpf (None) Urine Mucus 1+ H (Negative) Ur Culture Indicated? Cult not indicated Vol Urine Centrifuged 10ml (spun) Chlamy pneumoniae PCR Not detected (Not Detect) Adenovirus (PCR) Not detected (Not Detect) B.parapertussis DNA PCR Not detected (Not Detecte) Coronavirus OC43 (PCR) Not detected (Not Detect) Coronavirus HKU1 (PCR) Not detected (Not Detect) Coronavirus 229E (PCR) Not detected (Not Detect) SARS-CoV-2 (PCR) Not detected (Not Detecte) Coronavirus NL63 (PCR) Not detected (Not Detect) Human Metapneumovir PCR Not detected (Not Detect) Influenza Type A (PCR) Not detected (Not Detect) Influenza Type B (PCR) Not detected (Not Detect) M. pneumoniae (PCR) Not detected (Not Detect) Parainfluenza 1 (PCR) Not detected (Not Detect) Parainfluenza 2 (PCR) Not detected (Not Detect) Parainfluenza 3 (PCR) Not detected (Not Detect) Parainfluenza 4 (PCR) Not detected (Not Detect) RSV (PCR) Not detected (Not Detect) Entero/Rhino (PCR) Not detected (Not Detect) Urine Dip Bedside Urine Glucose Negative Bedside Urine Bilirubin - Negative Bedside Urine Ketone - Negative Urine Specific [place] 1.030 Bedside Urine Occult Blood - Negative Bedside Urine pH 5.5 Bedside Urine Protein +/- 15 Bedside Urine Urobilinogen - Negative Bedside Urine Nitrite - Negative Bedside Urine Leukocytes - Negative Esterase Point of care testing: Urine Dip Bedside Urine Glucose Negative Bedside Urine Bilirubin - Negative Bedside Urine Ketone - Negative Urine Specific [place] 1.030 Bedside Urine Occult Blood - Negative Bedside Urine pH 5.5 Bedside Urine Protein +/- 15 Bedside Urine Urobilinogen - Negative Bedside Urine Nitrite - Negative Bedside Urine Leukocytes - Negative Esterase Imaging Data Chest x-ray: Radiologist's Impression: PROCEDURE: XR CHEST 1V INDICATIONS: eval for PNA TECHNIQUE: One view of the chest was acquired. COMPARISON: [facility], [facility], XR CHEST 1V, 09/20/2022, 19:53. [facility], , CHEST 2 VIEW, 01/25/2015, 15:06. FINDINGS: Surgical changes and devices: Right chest wall port. Lungs and pleura: Lungs are clear. No pleural effusions or pneumothorax. Bibasilar scarring. Mediastinum: Mediastinal contours appear normal. Heart size is normal. Bones and chest wall: No suspicious bony lesions. Overlying soft tissues appear unremarkable. IMPRESSION: No acute cardiopulmonary abnormality is seen. ECG Data Interpretation: Atrial fibrillation Ventricular rate of 84 Normal axis Normal QRS No ST T wave changes Repeat EKG Sinus rhythm Ventricular rate is 71 Sinus arrhythmia First-degree AV block pr interval [address] T wave changes MDM Narrative Medical decision making narrative: Patient is not neutropenic. Was able to ambulate around the emergency department stating that he felt much better. No specific source of infection found. Is not febrile here in the ER. I suspect that his symptoms today are related to the chemotherapy 2 days ago. His family also states he has not had a lot to drink over the past 24 hours. I did encourage oral intake of fluids. Will discharge patient home. We will hold on any antibiotics for now. Will have him keep all of his scheduled medical appointments. He was given return precautions. He expressed understanding and agreement. Discharge Plan Departure Patient Disposition: Home Clinical Impression: Lightheadedness Activity Restrictions/Additional Instructions: Continue all of your medications as directed. Be sure that you were increasing your fluid intake. Keep all of your scheduled medical appointments. Return to the emergency department for new or worsening symptoms. Prescriptions: No Action bicalutamide [Casodex] 50 mg Tablet 50 mg PO DAILY calcium carbonate [Calcium 500] 500 mg calcium (1,250 mg) Tablet 500 mg PO DAILY cholecalciferol (vitamin D3) [Vitamin D3] 50 mcg (2,000 unit) Tablet 2,000 unit DAILY losartan 100 mg tablet 100 mg PO DAILY Patient Comments: take 1 tablet by mouth once daily Nubeqa 300 mg tablet 600 mg PO BID aspirin [Adult Aspirin Regimen] 81 mg tablet,delayed release (DR/EC) 81 mg PO DAILY Qty: 30 0RF Rx Instructions: OTC clopidogrel 75 mg tablet 75 mg PO DAILY Qty: 30 0RF atorvastatin 80 mg tablet 80 mg PO BEDTIME Qty: 30 0RF Referrals: Tish Mcnamara MD [Primary Care Provider] - Stand Alone Forms: Patient Portal/API
[2023-09-12 22:10] LABS: Adenovirus Not Detected (Not Detect); B. parapertussis Not Detected (Not Detecte); Bordetella pertussis Not Detected (Not Detect); Chlamydophila pneumoniae Not Detected (Not Detect); Coronavirus 229E Not Detected (Not Detect); Coronavirus HKU1 Not Detected (Not Detect); Coronavirus NL 63 Not Detected (Not Detect); Coronavirus OC43 Not Detected (Not Detect); Human Metapneumovirus Not Detected (Not Detect); Human Rhinovirus/Enterovirus Not Detected (Not Detect); Influenza A Not Detected (Not Detect); Influenza B Not Detected (Not Detect); Mycoplasma pneumoniae Not Detected (Not Detect); Parainfluenza Virus 1 Not Detected (Not Detect); Parainfluenza Virus 2 Not Detected (Not Detect); Parainfluenza Virus 3 Not Detected (Not Detect); Parainfluenza Virus 4 Not Detected (Not Detect); Respiratory Syncytial Virus Not Detected (Not Detect); SARS- CoV-2 Not Detected (Not Detecte)
[2023-09-12 22:46] LABS: Bacteria Urine None Seen; Culture Indicated Urine Cult Not Indicated; Hyaline Casts Urine 0-1/LPF; Mucus Urine 1+ (Negative); RBC Urine None Seen (0-5/HPF); Squamous Epithelial Cell Urine 0-1 /HPF (0-5/HPF); Urine Volume 10mL (spun); WBC Urine None Seen (0-5/HPF)
== END 2023-09-12 22:51 | disposition home or self-care (01) ==
PROVIDERS: Emergency Provider Emergency Medicine; PCP Internal Medicine
DX: R42 Dizziness and giddiness (principal); R07.9 Chest pain, unspecified; C61 Malignant neoplasm of prostate; Z20.822 Contact with and (suspected) exposure to COVID-19
CPT/HCPCS: 36415; 71045; 80053; 81003; 81015; 82550; 83605; 83690; 84145; 84484; 85025; 87040; 87633; 93005; 96360; 96361; 99284

== ENCOUNTER → 2024-11-04 11:56 | Outpatient (CLI) | payer MEDICARE, OTHER, SELFPAY ==
[2024-11-04 12:32] LABS: Add Manual Diff / Slide Review NO; Basophils Absolute Auto 0 /uL (0-100); Basophils Percent Auto 0.2 % (0-2); Eosinophils Absolute Auto 0 /uL (0-450); Eosinophils Percent Auto 0.9 % (2-4); Hematocrit 33.4 % (41-53); Hemoglobin 11.4 g/dL (13.5-17.5); Lymphocytes Absolute Auto 400 /uL (1100-4500); Mean Corpuscular HGB Conc 34.2 % (30-36); Mean Corpuscular Hemoglobin 30.6 PG (26-34); Mean Corpuscular Volume 89.5 fL (80-100); Monocytes Absolute Auto 400 /uL (0-900); Monocytes Percent Auto 7.3 % (3-14); Neutrophils Absolute Auto 4700 /uL (1500-7000); Neutrophils Percent Auto 84.6 % (50-75); Platelet Count 188 X10^3/uL (150-400); Red Blood Cell Count 3.74 X10^6/uL (4.5-5.9); Red Cell Distribution Width 16.1 % (11.6-14.8); White Blood Cell Count 5.6 X10^3/uL (4.5-11.0)
[2024-11-04 12:56] LABS: Alanine Aminotransferase 22 IU/L (<50); Albumin 4.4 g/dL (3.5-5.0); Albumin Globulin Ratio 2.1 (1.0-2.8); Alkaline Phosphatase 70 U/L (38-126); Aspartate Aminotransferase 28 IU/L (17-59); BUN Creatinine Ratio 20.4 (6-22); Bilirubin Total 0.7 mg/dL (0.2-1.3); Blood Urea Nitrogen 20 mg/dL (9-20); Calcium 9.9 mg/dL (8.4-10.2); Carbon Dioxide 28 mmol/L (22-32); Chloride 106 mmol/L (98-107); Estimated Glomerular Filt Rate > 60 mL/min (>60); Globulin 2.1 g/dL (1.7-4.1); Glucose 82 mg/dL (70-99); HEMOLYSIS < 15 (0-50); Potassium 4.2 mmol/L (3.4-5.1); Sodium 142 mmol/L (137-145); Total Protein 6.5 g/dL (6.3-8.2)
[2024-11-04 13:28] LABS: Prostate Specific Antigen 19.1 ng/mL (0.10-4.00)
== END ==
PROVIDERS: PCP Family Medicine; Referring Provider Radiology Radiation Oncology; Visit Provider Radiology Radiation Oncology
DX: C61 Malignant neoplasm of prostate (principal); C79.51 Secondary malignant neoplasm of bone
CPT/HCPCS: 36415; 80053; 84153; 85025

== ENCOUNTER → 2025-03-29 10:54 | Outpatient (CLI) | payer MEDICARE, OTHER, SELFPAY ==
[2025-03-29 14:18] LABS: COVID-19 CEPHEID 4-PLEX PCR Negative (Negative); Influenza A - CEPHEID Flu A NEGATIVE (NEGATIVE); Influenza B - CEPHEID Flu B NEGATIVE (NEGATIVE)
== END ==
PROVIDERS: PCP Family Medicine; Visit Provider Family Medicine
DX: R05.1 Acute cough (principal)
CPT/HCPCS: 87637